=== PATIENT | male | born 2000 | race Caucasian/White ===

== ENCOUNTER 2021-09-29 07:16 | Inpatient (IN) ==
--- NOTE | 2021-09-29 07:48 | Emergency Department Note ---
History of Present Illness General Chief complaint: Flank Pain Stated complaint: BLADDER PRESSURE,FLANK PAIN Time Seen by Provider: 09/29/21 07:27 History of Present Illness Maximum Pain Intensity: 5 Patient is a generally healthy 21-year-old male who presents the emergency department for evaluation of bladder discomfort and abdominal pain over the last week or so. He does carry a history of IBS, ate some spicy noodles a couple weeks ago which gave him an IBS flare, but this resolved. He noted a "tingling sensation" in his bladder about a week ago. 2 days ago he had a lot of incr eased abdominal cramping, bladder pressure and soreness in the bladder after voiding. There was no dysuria however. He subjectively has felt feverish and had chills, but has not checked his temperature with a thermometer. But today he woke up with increased lower abdominal discomfort. It felt gassy. He did have a bowel movement, which helped, bowel movement was normal, no diarrhea. He has tried taking Tylenol and drinking cranberry juice for his symptoms. His appetite has been good but he has been following a bland diet. He has not been nauseous. No history of urinary issues or kidney stones. He denies alcohol, tobacco or nicotine use or street drugs. He is sexually active with his girlfriend in a monogamous relationship, has no discomfort with intercourse, no penile discharge, no concern for STIs. He denies any scrotal or testicular pain or swelling. He rated his discomfort a 5/10 in triage. Home Medications Medication Instructions Recorded Confirmed Type acetaminophen 325 mg tablet 325 mg PO QID PRN 09/29/21 09/29/21 History (Tylenol) Allergies Allergy/AdvReac Type Severity Reaction Status Date / Time azithromycin [From Zithromax] Allergy Intermediate hives in Unverified 09/29/21 08:45 mouth amoxicillin Allergy Unknown Unknown Unverified 09/29/21 08:45 Penicillins Allergy Unknown Unknown Unverified 09/29/21 08:45 Past Med/Surg History Medical History IBS (irritable bowel syndrome) Panic attack Surgical History H/O wisdom tooth extraction Social History Smoking Status: Never smoker Tobacco Type: E-cigarettes / Vaping Hx Alcohol Use: No Hx Substance Use: No Preferred Language: Salvadorean Communication Ability: Effective Operating Room Specialist Required: No Beliefs That Will Affect Care: None Current Living Situation: Significant Other Current Living Situation Comment: lives locally with girlfriend current occupation: [employer] student, taking virtual classes Other Information That Helps Us Care for You: No Feels Safe at Home: Yes Safety Concerns: Feels Safe At This Time Assistive Devices: Glasses Review of Systems A total of 10 systems reviewed and were otherwise negative Physical Exam Vital Signs Vital Signs - 24 hr 09/29/21 07:20 09/29/21 09:15 09/29/21 10:00 Temperature 36.9 C Temperature Source Oral Pulse Rate 126 H Pulse Rate [Radial] 98 H 98 H Pulse Rhythm [Radial] Regular Regular Respiratory Rate 20 18 18 Respiratory Effort / Characteristics Non-Labored Non-Labored Non-Labored Respiratory Depth Normal Normal Normal Respiratory Pattern Regular Regular Blood Pressure 137/91 Blood Pressure [Right Arm] 130/72 115/68 Blood Pressure Mean 106 Blood Pressure Mean [Right Arm] 91 83 Pulse Oximetry 100 98 98 Oxygen Delivery Method Room Air Room Air Room Air Sepsis Recent Fever Within 48 Hours No Sepsis New/Unexplained Change in Mental Status N/A Sepsis Action Taken by Nursing No Action Required CONSTITUTIONAL: Patient is a pleasant, well-appearing 21-year-old male who is aw gin and alert and in no acute distress. EYES: Pupils equal, round, reactive to light and accommodation. EOMs intact without nystagmus. Sclera are anicteric. ENT: Tympanic membranes intact, with normal landmarks. External canals are clear. Oral and nasopharynx are clear. Mucous membranes are moist, no lesions, tongue and gums appear normal. CARDIOVASCULAR: Regular rate and rhythm, with normal S1 and S2, no murmur or gallop or rub is heard. No carotid bruits auscultated. No JVD. Peripheral pulses easily palpable. RESPIRATORY: Breath sounds equal and clear to auscultation without wheezes, rales, or rhonchi heard. Full and equal chest expansion without accessory muscle use or retractions. ABDOMEN: Bowel sounds are present. Abdomen is soft, nondistended, tender to percussion in the suprapubic, right lower and left lower abdomen, tender to palpation in the right lower quadrant, and in the suprapubic region. Voluntary guarding noted. No CVA tenderness. INTEGUMENTARY: No lesions or rash, normal skin turgor. LYMPH: No lymphadenopathy. Course Course The patient was seen and assessed as above. Old records are reviewed. He presents the emergency department for evaluation of some vague urinary symptoms, but lower abdominal discomfort and cramping in the last 48 hours that has worsened. IV lock was initiated and laboratory studies were collected. CBC with differential, CMP and urinalysis were obtained. Urine dip performed by the ED nurse in the department was completely clear. Laboratory studies note a minimally elevated white count at 11,300, left shift and bandemia noted. No anemia. Electrolytes, renal functions, transaminases are normal. Urine microscopy is pending. CT scan of the abdomen and pelvis with IV contrast was obtained, noting perforated acute appendicitis with a 3.8 cm multiloculated periappendiceal abscess and extensive periappendiceal infiltration. Patient was ordered IV Cipro 400 mg and metronidazole 500 mg. He was made aware of the results of his CAT scan. A COVID swab was collected. He was reminded to be n.p.o. Consultation was placed with Dr. Santos with general surgery. COVID swab was negative. Dr. Santos evaluated the patient in the emergency department, and will admit to his service for IV antibiotics. Please refer to his H&P for further information. Administered Medications Enoxaparin Sodium (Enoxaparin Inj 40 Mg/0.4 Ml Syr) 40 mg SQ Q24H GALINDO Stop: 10/29/21 13:29 Last Admin: 09/29/21 13:25 Dose: Not Given Documented by: [id number] Metronidazole (Flagyl) 500 mg in 100 mls @ 100 mls/hr IV Q8H GALINDO Stop: 10/09/21 09:59 Last Infusion: 09/29/21 10:52 Dose: 0 mls/hr Documented by: [id number] Admin: 09/29/21 09:54 Dose: 100 mls/hr Documented by: [id number] Morphine Sulfate (Morphine Sulfate 2 Mg/Ml Carp) 2 mg IV Q3H PRN PRN Reason: Pain (1,2,3,4,5) & Pre PT Stop: 10/13/21 13:16 Last Admin: 09/29/21 13:29 Dose: 2 mg Documented by: [id number] Discontinued Medications Sodium Chloride (Nss 1000ml) 1,000 mls @ 999 mls/hr IV .Q1H1M GALINDO Stop: 09/29/21 08:49 Last Infusion: 09/29/21 08:50 Dose: 0 mls/hr Documented by: [id number] Admin: 09/29/21 08:06 Dose: 999 mls/hr Documented by: [id number] Ciprofloxacin (Cipro / D5w) 400 mg in 200 mls @ 100 mls/hr IV NOW STA; Protocol Stop: 09/29/21 11:32 Last Infusion: 09/29/21 11:56 Dose: 0 mls/hr Documented by: [id number] Admin: 09/29/21 09:47 Dose: 100 mls/hr Documented by: [id number] Ioversol (Optiray 320 100ml) 95 ml IV ONCE ONE Stop: 09/29/21 09:16 Last Admin: 09/29/21 09:16 Dose: 95 ml Documented by: [id number] Medical Decision Making Differential Diagnosis Differential diagnoses entertained included UTI, cystitis, kidney stone, pyelonephritis, prostatitis, appendicitis, bowel obstruction, perforation, abscess, IBS exacerbation, infectious versus inflammatory colitis/enteritis, foodborne illness, hernia, orchitis, epididymitis, among others. Medical Records Attestation: I reviewed the patient's medical records. Home Medications Current Medication List: was personally reviewed by me Laboratory Data Attestation: I reviewed the patient's lab results. Result diagrams: 09/29/21 08:07 09/29/21 08:07 Lab Results 09/29/21 09/29/21 09/29/21 Range/Units 07:30 08:07 08:07 WBC 11.36 H (4.8-10.8) K/uL RBC 5.04 (4.7-6.1) M/uL Hgb 15.1 (14.0-18.0) g/dL Hct 43.1 (42-52) % MCV 85.5 (80-100) fL MCH 30.0 (25-34) pg MCHC 35.0 (32-36) g/dL RDW Std Deviation 39.2 (36.4-46.3) fL RDW Coeff of Aviva 12.5 (11.5-14.5) % Plt Count 266 (130-400) K/uL MPV 10.4 (7.4-10.4) fL Immature Gran % (Auto) 0.3 % Neut % (Auto) 76.8 % Lymph % (Auto) 12.3 % Hanson % (Auto) 9.2 % Eos % (Auto) 1.1 % Baso % (Auto) 0.3 % Neut # (Auto) 8.73 H (1.4-6.5) K/uL Lymph # (Auto) 1.40 (1.2-3.4) K/uL Hanson # (Auto) 1.05 H (0.11-0.59) K/uL Eos # (Auto) 0.12 (0-0.5) K/uL Baso # (Auto) 0.03 (0-0.2) K/uL Immature Gran # (Auto) 0.03 H (0.00-0.02) K/uL Sodium 137 (136-145) mmol/L Potassium 3.7 (3.5-5.1) mmol/L Chloride 103 (98-107) mmol/L Carbon Dioxide 27 (21-32) mmol/L Anion Gap 7 (3-11) BUN 10 (6-23) mg/dl Creatinine 0.84 (0.6-1.4) mg/dl Est Cr Clr Drug Dosing 139.5 ml/min Est GFR ( Amer) 146.1 ml/min Est GFR (Non-Af Amer) 126.0 ml/min BUN/Creatinine Ratio 11.9 (10-20) Glucose 119 H (70-99(Fasting)) mg/dl Calcium 9.8 (8.5-10.1) mg/dl Total Bilirubin 1.0 (0.2-1.0) mg/dl AST 14 (13-39) U/L ALT 24 (7-52) U/L Alkaline Phosphatase 77 (34-104) U/L Total Protein 8.1 (6.0-8.3) gm/dl Albumin 4.6 (3.4-5.0) gm/dl Globulin 3.5 (2.5-4.0) gm/dl Albumin/Globulin Ratio 1.3 (0.9-2) Urine Color Yellow Urine Appearance Clear (Clear) Urine pH 7.0 (4.5-7.5) Ur Specific [place] 1.005 (1.000-1.030) Urine Protein Negative (Negative) Urine Glucose (UA) Negative (Negative) Urine Ketones Negative (Negative) Urine Blood Negative (Negative) Urine Nitrite Negative (Negative) Urine Bilirubin Negative (Negative) Urine Urobilinogen Negative (Negative) Ur Leukocyte Esterase Negative (Negative) SARS-CoV-2, RNA, NAAT (NEGATIVE) 09/29/21 Range/Units 09:40 WBC (4.8-10.8) K/uL RBC (4.7-6.1) M/uL Hgb (14.0-18.0) g/dL Hct (42-52) % MCV (80-100) fL MCH (25-34) pg MCHC (32-36) g/dL RDW Std Deviation (36.4-46.3) fL RDW Coeff of Aviva (11.5-14.5) % Plt Count (130-400) K/uL MPV (7.4-10.4) fL Immature Gran % (Auto) % Neut % (Auto) % Lymph % (Auto) % Hanson % (Auto) % Eos % (Auto) % Baso % (Auto) % Neut # (Auto) (1.4-6.5) K/uL Lymph # (Auto) (1.2-3.4) K/uL Hanson # (Auto) (0.11-0.59) K/uL Eos # (Auto) (0-0.5) K/uL Baso # (Auto) (0-0.2) K/uL Immature Gran # (Auto) (0.00-0.02) K/uL Sodium (136-145) mmol/L Potassium (3.5-5.1) mmol/L Chloride (98-107) mmol/L Carbon Dioxide (21-32) mmol/L Anion Gap (3-11) BUN (6-23) mg/dl Creatinine (0.6-1.4) mg/dl Est Cr Clr Drug Dosing ml/min Est GFR ( Amer) ml/min Est GFR (Non-Af Amer) ml/min BUN/Creatinine Ratio (10-20) Glucose (70-99(Fasting)) mg/dl Calcium (8.5-10.1) mg/dl Total Bilirubin (0.2-1.0) mg/dl AST (13-39) U/L ALT (7-52) U/L Alkaline Phosphatase (34-104) U/L Total Protein (6.0-8.3) gm/dl Albumin (3.4-5.0) gm/dl Globulin (2.5-4.0) gm/dl Albumin/Globulin Ratio (0.9-2) Urine Color Urine Appearance (Clear) Urine pH (4.5-7.5) Ur Specific [place] (1.000-1.030) Urine Protein (Negative) Urine Glucose (UA) (Negative) Urine Ketones (Negative) Urine Blood (Negative) Urine Nitrite (Negative) Urine Bilirubin (Negative) Urine Urobilinogen (Negative) Ur Leukocyte Esterase (Negative) SARS-CoV-2, RNA, NAAT NEGATIVE (NEGATIVE) Imaging Data Attestation: I personally reviewed and interpreted this imaging study as fo llows: Radiologist's Impression: Abdomen/Pelvis CT 09/29/21 07:48 CT OF THE ABDOMEN AND PELVIS WITH CONTRAST CLINICAL HISTORY: RLQ/SUPRAPUBIC PAIN, URINARY SYMPTOMS, BACK PAIN COMPARISON STUDY: None. TECHNIQUE: Following IV administration of 95 mL of Optiray, axial images of the abdomen and pelvis were obtained from the lung bases to the proximal femurs. Images were reviewed in the axial, sagittal, and coronal planes. IV contrast was administered without complication. Automated exposure control was utilized for the study. A dose lowering technique was utilized adhering to the principles of ALARA. CT DOSE: 318.75 mGy.cm FINDINGS: Lung bases are unremarkable. No pneumatosis, free air or portal venous gas is present. Liver, adrenal glands, kidneys and pancreas are normal. The spleen is mildly enlarged. No biliary or pancreatic ductal dilatation is present. There is no peripancreatic or pericholecystic infiltration. Prominent ileocolic lymph nodes are likely reactive. There is trace fluid within the right paracolic gutter. Base of the appendix is markedly dilated with wall thickening. The appendiceal base measures 1.8 cm in caliber. There is extensive periappe ndiceal infiltration as well as a multiloculated periappendiceal abscess that measures 3.8 cm. The wall appears disrupted. This represents perforated appendicitis. Small amount of fluid within the pelvis is noted. The appendix extends inferiorly from the cecum along the medial aspect of the right iliac vessels to the superior pelvis. IMPRESSION: 1. Findings consistent with perforated acute appendicitis with a 3.8 cm multiloculated periappendiceal abscess and extensive periappendiceal infiltration. Small amount of fluid within the pelvis and right paracolic gutter. 2. Mild splenomegaly. ACT 112: Negative or not required by law. Electronically signed by: Jonas Tucker M.D. 09/29/2021 9:29 AM MDM Narrative See ED Course. Impression & Plan Acute appendicitis with appendiceal abscess Discharge Plan Visit Data Chief Complaint: Flank Pain Stated Complaint: BLADDER PRESSURE,FLANK PAIN ED Provider: Melina Rivera ED Midlevel Provider: Trisha Kirkland Discharge Problem: Acute appendicitis with appendiceal abscess Patient Disposition: Admitted As Inpatient Discharge Instructions Interventions: ED Discharge Assessment Last Done: 09/29/21 12:49
[2021-09-29] MEDS ORDERED: SODIUM CHLORIDE 0.9% 1000ML 1,000 ML IV SCH (07:49)
[2021-09-29 08:07] LABS: Appearance Urine Clear (Clear); Bilirubin Urine Negative (Negative); Blood Urine Negative (Negative); Color Urine Yellow; Glucose Urine UA Negative (Negative); Ketones Urine Negative (Negative); Leukocyte Esterase Urine Negative (Negative); Nitrite Urine Negative (Negative); Protein Urine Negative (Negative); Specific Gravity Urine 1.005 (1.000-1.030); Urobilinogen Urine Negative (Negative)
[2021-09-29 08:31] LABS: Basophils # (auto) 0.03 K/uL (0-0.2); Basophils % (auto) 0.3 %; Eosinophils # (auto) 0.12 K/uL (0-0.5); Eosinophils % (auto) 1.1 %; Hematocrit (blood only) 43.1 % (42-52); Hemoglobin 15.1 g/dL (14.0-18.0); Immature Granulocytes # (auto) 0.03 K/uL (0.00-0.02); Immature Granulocytes % (auto) 0.3 %; Lymphocytes % (auto) 12.3 %; Mean Corpuscular Volume 85.5 fL (80-100); Mean Platelet Volume 10.4 fL (7.4-10.4); Monocytes # (auto) 1.05 K/uL (0.11-0.59); Monocytes % (auto) 9.2 %; Neutrophils # (auto) 8.73 K/uL (1.4-6.5); Neutrophils % (auto) 76.8 %; Platelet Count 266 K/uL (130-400); RDW Coefficient of Variation 12.5 % (11.5-14.5); RDW Standard Deviation 39.2 fL (36.4-46.3); Red Blood Count 5.04 M/uL (4.7-6.1); White Blood Count 11.36 K/uL (4.8-10.8)
[2021-09-29 08:49] LABS: Albumin Globulin Ratio 1.3 (0.9-2); Albumin Level 4.6 gm/dl (3.4-5.0); BUN Creatinine Ratio 11.9 (10-20); Calcium 9.8 mg/dl (8.5-10.1); Creatinine Clr Calc Pharmacy 139.5 ml/min; Est GFR (African American) 146.1 ml/min; Globulin 3.5 gm/dl (2.5-4.0); Potassium 3.7 mmol/L (3.5-5.1); Total Protein 8.1 gm/dl (6.0-8.3)
[2021-09-29] MEDS ORDERED: OPTIRAY 320 100ml IV ONE (09:15)
--- NOTE | 2021-09-29 09:30 | CT Scan Report ---
CT OF THE ABDOMEN AND PELVIS WITH CONTRAST CLINICAL HISTORY: RLQ/SUPRAPUBIC PAIN, URINARY SYMPTOMS, BACK PAIN COMPARISON STUDY: None. TECHNIQUE: Following IV administration of 95 mL of Optiray, axial images of the abdomen and pelvis we re obtained from the lung bases to the proximal femurs. Images were reviewed in the axial, sagittal, and coronal planes. IV contrast was administered without complication. Automated exposure control wa s utilized for the study. A dose lowering technique was utilized adhering to the principles of ALARA . CT DOSE: 318.75 mGy.cm FINDINGS: Lung bases are unremarkable. No pneumatosis, free air or portal venous gas is present. Live r, adrenal glands, kidneys and pancreas are normal. The spleen is mildly enlarged. No biliary or panc reatic ductal dilatation is present. There is no peripancreatic or pericholecystic infiltration. Prom inent ileocolic lymph nodes are likely reactive. There is trace fluid within the right paracolic gutt er. Base of the appendix is markedly dilated with wall thickening. The appendiceal base measures 1.8 cm in caliber. There is extensive periappendiceal infiltration as well as a multiloculated periappend iceal abscess that measures 3.8 cm. The wall appears disrupted. This represents perforated appendicit is. Small amount of fluid within the pelvis is noted. The appendix extends inferiorly from the cecum along the medial aspect of the right iliac vessels to the superior pelvis. IMPRESSION: 1. Findings consistent with perforated acute appendicitis with a 3.8 cm multiloculated periappendicea l abscess and extensive periappendiceal infiltration. Small amount of fluid within the pelvis and rig ht paracolic gutter. 2. Mild splenomegaly. ACT 112: Negative or not required by law. Electronically signed by: Jonas Tucker M.D. 09/29/2021 9:29 AM
[2021-09-29] MEDS ORDERED: CIPROFLOXACIN / D5W 400 MG/200 ML BAG IV STA (09:33)
[2021-09-29] MEDS: metroNIDAZOLE 500 MG/100 ML BAG IV SCH ×2 (09:54→17:44)
--- NOTE | 2021-09-29 10:58 | History & Physical Report ---
Date of Service September 29, 2021 Assessment & Plan (1) Acute appendicitis with appendiceal abscess: Plan: 21-year-old gentleman presents with acute appendicitis with what appears to be contained perforation, 3 cm abscess. He is not febrile at this time. His white count is normal. He has minimal tenderness. On his CT scan, there is a significant amount of severe inflammatory change in the cecum and terminal ileum with large phlegmon. I discussed treatment with IV antibiotics currently. I reviewed the CT scan with radiology, and due to the size and location, it is not a drainable collection. Certainly, if he deteriorates, he may require operative intervention, however for now we will treat him conservatively with IV Cipro and Flagyl. He does have a penicillin allergy. All his questions were answered, he is agreeable with the plan. We will admit him to the hospital place him on IV antibiotics, keep him on clear liquid diet. We will monitor him very closely. History of Present Illness Primary Care Provider: Jose A Cardenas DO 21-year-old gentleman with history of IBS presents with a 4-day history of mild lower abdominal pain, and a "queasy "feeling, as if he had a GI bug. He states that this morning he had severe right lower quadrant pain which subsequently went away. He currently has a moderate amount of right lower quadrant pain, aching character. He denies nausea or vomiting. He denies change in bowel habits. He did have fevers and chills associated with this on Thursday and Thursday but none currently. He denies chest pain or shortness of breath. He denies any other medical history. CT scan demonstrates appendicitis with significant inflammation of the cecum and terminal ileum as well as a small 3 cm abscess, contained. In discussing with radiology, it does not appear to be a drainable collection. Allergies Allergy/AdvReac Type Severity Reaction Status Date / Time azithromycin [From Zithromax] Allergy Intermediate hives in Unverified 09/29/21 08:45 mouth amoxicillin Allergy Unknown Unknown Unverified 09/29/21 08:45 Penicillins Allergy Unknown Unknown Unverified 09/29/21 08:45 Home Medications Medication Instructions Recorded Confirmed Type acetaminophen 325 mg tablet 325 mg PO QID PRN 09/29/21 09/29/21 History (Tylenol) Past Med/Surg History Medical History IBS (irritable bowel syndrome) Panic attack Surgical History H/O wisdom tooth extraction Social History Smoking Status: Never smoker Tobacco Type: E-cigarettes / Vaping Current Living Situation Comment: lives locally with girlfriend current occupation: [employer] student, taking [employer] classes Feels Safe at Home: Yes Review of Systems Review of Systems: All systems reviewed & are unremarkable except as noted in HPI & below Physical Exam Constitutional: WD/WN, vitals as above Neck: trachea midline, no thyromegaly Respiratory: normal respiratory effort; no respiratory distress and no labored breathing Cardiovascular: Rate/Rhythm: regular rate and regular rhythm Gastrointestinal (Abdomen): Inspection/Auscultation: abdomen normal to inspection; abdomen not distended Percussion/Palpation: + abdomen tender (Right lower quadrant) and abdomen soft; no guarding and abdomen not rigid Musculoskeletal: Extremities: no cyanosis and no clubbing Skin: no rashes, warm and dry Psychiatric: A+Ox3, euthymic affect Results & Data Results & Data ([facility]) Vital Signs (Past 12 Hours) Vital Signs Temp Pulse Pulse Resp BP BP Pulse Ox 09/29/21 10:00 98 H 18 115/68 98 09/29/21 09:15 98 H 18 130/72 98 09/29/21 07:20 36.9 C 126 H 20 137/91 100 Laboratory Results 09/29/21 09/29/21 09/29/21 Range/Units 09:40 08:11 08:07 WBC (4.8-10.8) K/uL RBC (4.7-6.1) M/uL Hgb (14.0-18.0) g/dL Hct (42-52) % MCV (80-100) fL MCH (25-34) pg MCHC (32-36) g/dL RDW Std Deviation (36.4-46.3) fL RDW Coeff of Aviva (11.5-14.5) % Plt Count (130-400) K/uL MPV (7.4-10.4) fL Immature Gran % (Auto) % Neut % (Auto) % Lymph % (Auto) % [place] % (Auto) % Eos % (Auto) % Baso % (Auto) % Neut # (Auto) (1.4-6.5) K/uL Lymph # (Auto) (1.2-3.4) K/uL [place] # (Auto) (0.11-0.59) K/uL Eos # (Auto) (0-0.5) K/uL Baso # (Auto) (0-0.2) K/uL Immature Gran # (Auto) (0.00-0.02) K/uL Sodium 137 (136-145) mmol/L Potassium 3.7 (3.5-5.1) mmol/L Chloride 103 (98-107) mmol/L Carbon Dioxide 27 (21-32) mmol/L Anion Gap 7 (3-11) BUN 10 (6-23) mg/dl Creatinine 0.84 (0.6-1.4) mg/dl Est Cr Clr Drug Dosing 139.5 ml/min Est GFR ( Amer) 146.1 ml/min Est GFR (Non-Af Amer) 126.0 ml/min BUN/Creatinine Ratio 11.9 (10-20) Glucose 119 H (70-99(Fasting)) mg/dl Calcium 9.8 (8.5-10.1) mg/dl Total Bilirubin 1.0 (0.2-1.0) mg/dl AST 14 (13-39) U/L ALT 24 (7-52) U/L Alkaline Phosphatase 77 (34-104) U/L Total Protein 8.1 (6.0-8.3) gm/dl Albumin 4.6 (3.4-5.0) gm/dl Globulin 3.5 (2.5-4.0) gm/dl Albumin/Globulin Ratio 1.3 (0.9-2) Urine Color Urine Appearance (Clear) Urine pH (4.5-7.5) POC Urine pH Pending Ur Specific Whitman (1.000-1.030) Urine Protein (Negative) POC Urine Protein Pending Urine Glucose (UA) (Negative) POC Ur Glucose (UA) Pending Urine Ketones (Negative) POC Urine Ketones Pending Urine Blood (Negative) POC Urine Blood Pending Urine Nitrite (Negative) POC Urine Nitrite Pending Urine Bilirubin (Negative) POC Urine Bilirubin Pending Urine Urobilinogen (Negative) POC Urine Urobilinogen Pending Ur Leukocyte Esterase (Negative) POC U Leukocyte Esteras Pending SARS-CoV-2, RNA, NAAT NEGATIVE (NEGATIVE) 09/29/21 09/29/21 Range/Units 08:07 07:30 WBC 11.36 H (4.8-10.8) K/uL RBC 5.04 (4.7-6.1) M/uL Hgb 15.1 (14.0-18.0) g/dL Hct 43.1 (42-52) % MCV 85.5 (80-100) fL MCH 30.0 (25-34) pg MCHC 35.0 (32-36) g/dL RDW Std Deviation 39.2 (36.4-46.3) fL RDW Coeff of Aviva 12.5 (11.5-14.5) % Plt Count 266 (130-400) K/uL MPV 10.4 (7.4-10.4) fL Immature Gran % (Auto) 0.3 % Neut % (Auto) 76.8 % Lymph % (Auto) 12.3 % [place] % (Auto) 9.2 % Eos % (Auto) 1.1 % Baso % (Auto) 0.3 % Neut # (Auto) 8.73 H (1.4-6.5) K/uL Lymph # (Auto) 1.40 (1.2-3.4) K/uL [place] # (Auto) 1.05 H (0.11-0.59) K/uL Eos # (Auto) 0.12 (0-0.5) K/uL Baso # (Auto) 0.03 (0-0.2) K/uL Immature Gran # (Auto) 0.03 H (0.00-0.02) K/uL Sodium (136-145) mmol/L Potassium (3.5-5.1) mmol/L Chloride (98-107) mmol/L Carbon Dioxide (21-32) mmol/L Anion Gap (3-11) BUN (6-23) mg/dl Creatinine (0.6-1.4) mg/dl Est Cr Clr Drug Dosing ml/min Est GFR ( Amer) ml/min Est GFR (Non-Af Amer) ml/min BUN/Creatinine Ratio (10-20) Glucose (70-99(Fasting)) mg/dl Calcium (8.5-10.1) mg/dl Total Bilirubin (0.2-1.0) mg/dl AST (13-39) U/L ALT (7-52) U/L Alkaline Phosphatase (34-104) U/L Total Protein (6.0-8.3) gm/dl Albumin (3.4-5.0) gm/dl Globulin (2.5-4.0) gm/dl Albumin/Globulin Ratio (0.9-2) Urine Color Yellow Urine Appearance Clear (Clear) Urine pH 7.0 (4.5-7.5) POC Urine pH Ur Specific [place] 1.005 (1.000-1.030) Urine Protein Negative (Negative) POC Urine Protein Urine Glucose (UA) Negative (Negative) POC Ur Glucose (UA) Urine Ketones Negative (Negative) POC Urine Ketones Urine Blood Negative (Negative) POC Urine Blood Urine Nitrite Negative (Negative) POC Urine Nitrite Urine Bilirubin Negative (Negative) POC Urine Bilirubin Urine Urobilinogen Negative (Negative) POC Urine Urobilinogen Ur Leukocyte Esterase Negative (Negative) POC U Leukocyte Esteras SARS-CoV-2, RNA, NAAT (NEGATIVE) Diagnostic Findings CT OF THE ABDOMEN AND PELVIS WITH CONTRAST CLINICAL HISTORY: RLQ/SUPRAPUBIC PAIN, URINARY SYMPTOMS, BACK PAIN COMPARISON STUDY: None. TECHNIQUE: Following IV administration of 95 mL of Optiray, axial images of the abdomen and pelvis were obtained from the lung bases to the proximal femurs. Images were reviewed in the axial, sagittal, and coronal planes. IV contrast was administered without complication. Automated exposure control was utilized for the study. A dose lowering technique was utilized adhering to the principles of ALARA. CT DOSE: 318.75 mGy.cm FINDINGS: Lung bases are unremarkable. No pneumatosis, free air or portal venous gas is present. Liver, adrenal glands, kidneys and pancreas are normal. The spleen is mildly enlarged. No biliary or pancreatic ductal dilatation is present. There is no peripancreatic or pericholecystic infiltration. Prominent ileocolic lymph nodes are likely reactive. There is trace fluid within the right paracolic gutter. Base of the appendix is markedly dilated with wall thickening. The appendiceal base measures 1.8 cm in caliber. There is extensive periappendiceal infiltration as well as a multiloculated periappendiceal abscess that measures 3.8 cm. The wall appears disrupted. This represents perforated appendicitis. Small amount of fluid within the pelvis is noted. The appendix extends inferiorly from the cecum along the medial aspect of the right iliac vessels to the superior pelvis. IMPRESSION: 1. Findings consistent with perforated acute appendicitis with a 3.8 cm multiloculated periappendiceal abscess and extensive periappendiceal infiltration. Small amount of fluid within the pelvis and right paracolic gutter. 2. Mild splenomegaly. Code Status & VTE Plan VTE Prophylaxis Plan VTE Prophylaxis will be ordered: Yes
[2021-09-29] MEDS ORDERED: KETOROLAC 30 MG/ML VIAL IV PRN (13:17)
[2021-09-29] MEDS ORDERED: PROMETHAZINE HCL 12.5 MG in SODIUM CHLORIDE 0.9% 50 ML IV PRN (13:17)
[2021-09-29] MEDS ORDERED: PROMETHAZINE HCL 25 MG in SODIUM CHLORIDE 0.9% 50 ML IV PRN (13:17)
[2021-09-29] MEDS: ENOXAPARIN INJ 40 MG/0.4 ML SYR SQ SCH (13:25)
[2021-09-29] MEDS: MoRPHine SULFATE 2 MG/ML CARP IV PRN ×3 (13:29→22:54)
[2021-09-29] MEDS: CIPROFLOXACIN / D5W 400 MG/200 ML BAG IV SCH (20:46)
[2021-09-30] MEDS: metroNIDAZOLE 500 MG/100 ML BAG IV SCH ×3 (01:40→17:42)
[2021-09-30 08:06] LABS: Basophils # (auto) 0.03 K/uL (0-0.2); Basophils % (auto) 0.2 %; Eosinophils # (auto) 0.07 K/uL (0-0.5); Eosinophils % (auto) 0.5 %; Hematocrit (blood only) 38.7 % (42-52); Hemoglobin 13.5 g/dL (14.0-18.0); Immature Granulocytes # (auto) 0.03 K/uL (0.00-0.02); Immature Granulocytes % (auto) 0.2 %; Lymphocytes # (auto) 1.88 K/uL (1.2-3.4); Lymphocytes % (auto) 14.7 %; Mean Corpuscular Hemoglobin 30.1 pg (25-34); Mean Corpuscular Hgb Conc 34.9 g/dL (32-36); Mean Corpuscular Volume 86.4 fL (80-100); Mean Platelet Volume 10.3 fL (7.4-10.4); Monocytes # (auto) 1.22 K/uL (0.11-0.59); Monocytes % (auto) 9.5 %; Neutrophils # (auto) 9.59 K/uL (1.4-6.5); Neutrophils % (auto) 74.9 %; Platelet Count 264 K/uL (130-400); RDW Coefficient of Variation 12.4 % (11.5-14.5); RDW Standard Deviation 39.2 fL (36.4-46.3); Red Blood Count 4.48 M/uL (4.7-6.1); White Blood Count 12.82 K/uL (4.8-10.8)
[2021-09-30] MEDS: CIPROFLOXACIN / D5W 400 MG/200 ML BAG IV SCH ×2 (08:07→20:22)
[2021-09-30 08:28] LABS: BUN Creatinine Ratio 14.1 (10-20); Calcium 9.3 mg/dl (8.5-10.1); Creatinine Clr Calc Pharmacy 134.1 ml/min; Est GFR (African American) 145.4 ml/min; Est GFR (Non-African American) 125.4 ml/min; Potassium 3.5 mmol/L (3.5-5.1)
--- NOTE | 2021-09-30 11:11 | Surgery Progress Note ---
Date of Service September 30, 2021 Assessment & Plan (1) Acute appendicitis with appendiceal abscess: Plan: 21-year-old gentleman with acute appendicitis with phlegmon and small abscess. Being treated with IV antibiotic therapy. He is significantly improved today. We will continue the antibiotics. We will continue to monitor. He will stay on a clear liquid diet today. Admission and Anticipated Discharge Date Admission Date: September 29, 2021 Subjective He states he is feeling well today. He denies any nausea or vomiting. He states that his pain is significantly improved from yesterday. Physical Exam Constitutional: WD/WN, vitals as above Neck: trachea midline, no thyromegaly Gastrointestinal (Abdomen): Inspection/Auscultation: abdomen normal to inspection; abdomen not distended Percussion/Palpation: + abdomen tender (Right lower quadrant) and abdomen soft; no guarding and abdomen not rigid Musculoskeletal: Extremities: no cyanosis and no clubbing Skin: no rashes, warm and dry Psychiatric: A+Ox3, euthymic affect Results & Data ([facility]) Vital Signs (Past 12 Hours) Vital Signs Temp Pulse Resp BP Pulse Ox 09/30/21 08:46 36.7 C 96 H 16 113/65 96
[2021-09-30] MEDS: MoRPHine SULFATE 2 MG/ML CARP IV PRN ×2 (12:47→20:19)
[2021-09-30] MEDS: ENOXAPARIN INJ 40 MG/0.4 ML SYR SQ SCH (12:47)
[2021-09-30] MEDS ORDERED: ACETAMINOPHEN 325 MG TAB PO PRN (16:58)
[2021-10-01] MEDS: metroNIDAZOLE 500 MG/100 ML BAG IV SCH ×3 (01:54→17:41)
[2021-10-01 07:54] LABS: Basophils # (auto) 0.02 K/uL (0-0.2); Basophils % (auto) 0.2 %; Eosinophils # (auto) 0.18 K/uL (0-0.5); Eosinophils % (auto) 1.8 %; Hematocrit (blood only) 39.2 % (42-52); Hemoglobin 13.5 g/dL (14.0-18.0); Immature Granulocytes # (auto) 0.01 K/uL (0.00-0.02); Immature Granulocytes % (auto) 0.1 %; Lymphocytes # (auto) 1.24 K/uL (1.2-3.4); Lymphocytes % (auto) 12.5 %; Mean Corpuscular Hgb Conc 34.4 g/dL (32-36); Mean Corpuscular Volume 87.1 fL (80-100); Mean Platelet Volume 10.4 fL (7.4-10.4); Monocytes # (auto) 1.17 K/uL (0.11-0.59); Monocytes % (auto) 11.8 %; Neutrophils % (auto) 73.6 %; Platelet Count 261 K/uL (130-400); RDW Coefficient of Variation 12.3 % (11.5-14.5); RDW Standard Deviation 39.1 fL (36.4-46.3); White Blood Count 9.92 K/uL (4.8-10.8)
[2021-10-01] MEDS: CIPROFLOXACIN / D5W 400 MG/200 ML BAG IV SCH ×2 (08:00→20:34)
[2021-10-01 08:04] LABS: BUN Creatinine Ratio 12.1 (10-20); Calcium 9.4 mg/dl (8.5-10.1); Creatinine Clr Calc Pharmacy 125.3 ml/min; Est GFR (African American) 140.1 ml/min; Est GFR (Non-African American) 120.9 ml/min; Potassium 4.1 mmol/L (3.5-5.1)
--- NOTE | 2021-10-01 09:38 | Surgery Progress Note ---
Date of Service October 01, 2021 Assessment & Plan (1) Acute appendicitis with appendiceal abscess: Plan: 21-year-old gentleman with acute appendicitis with phlegmon and small abscess. Being treated with IV antibiotic therapy. Tmax 38.1 yesterday afternoon afebrile since Leukocytosis resolved Eating clear liquids Passing flatus Plan: Will plan to continue IV antibiotics with Cipro and Flagyl Continue clear liquid diet, possibly full liquids for dinner Encourage ambulation SCDs for DVT prophylaxis Dr. Desir has seen and examined pt agrees with above. Admission and Anticipated Discharge Date Admission Date: September 29, 2021 Subjective Feeling better today, states the right lower quadrant abdominal pain is more of a soreness now at night pain. No nausea no vomiting Tolerating clear liquids Passing gas no bowel movement yet Urinating without difficulty Physical Exam Constitutional: WD/WN, vitals as above no acute distress and not ill appearing Neck: normal visual inspection and trachea midline Respiratory: normal respiratory effort; no respiratory distress Gastrointestinal (Abdomen): Inspection/Auscultation: abdomen normal to insp ection and normal bowel sounds; abdomen not distended Percussion/Palpation: + abdomen tender (right Lower quadrant), + guarding (voluntary in RLQ on deep palpation) and abdomen soft; abdomen not rigid and abdomen not firm Skin: no rashes, warm and dry Psychiatric: A+Ox3, euthymic affect Results & Data ([facility]) Vital Signs (Past 12 Hours) Vital Signs Temp Pulse Resp BP Pulse Ox 10/01/21 07:20 36.4 C L 105 H 20 118/73 96 09/30/21 22:14 36.3 C L 86 16 108/65 98 Laboratory Results 10/01/21 10/01/21 09/29/21 Range/Units 06:59 06:59 08:11 WBC 9.92 (4.8-10.8) K/uL RBC 4.50 L (4.7-6.1) M/uL Hgb 13.5 L (14.0-18.0) g/dL Hct 39.2 L (42-52) % MCV 87.1 (80-100) fL MCH 30.0 (25-34) pg MCHC 34.4 (32-36) g/dL RDW Std Deviation 39.1 (36.4-46.3) fL RDW Coeff of Aviva 12.3 (11.5-14.5) % Plt Count 261 (130-400) K/uL MPV 10.4 (7.4-10.4) fL Immature Gran % (Auto) 0.1 % Neut % (Auto) 73.6 % Lymph % (Auto) 12.5 % Bartholomew % (Auto) 11.8 % Eos % (Auto) 1.8 % Baso % (Auto) 0.2 % Neut # (Auto) 7.30 H (1.4-6.5) K/uL Lymph # (Auto) 1.24 (1.2-3.4) K/uL Bartholomew # (Auto) 1.17 H (0.11-0.59) K/uL Eos # (Auto) 0.18 (0-0.5) K/uL Baso # (Auto) 0.02 (0-0.2) K/uL Immature Gran # (Auto) 0.01 (0.00-0.02) K/uL Sodium 138 (136-145) mmol/L Potassium 4.1 (3.5-5.1) mmol/L Chloride 101 (98-107) mmol/L Carbon Dioxide 29 (21-32) mmol/L Anion Gap 8 (3-11) BUN 11 (6-23) mg/dl Creatinine 0.91 (0.6-1.4) mg/dl Est Cr Clr Drug Dosing 125.3 ml/min Est GFR ( Amer) 140.1 ml/min Est GFR (Non-Af Amer) 120.9 ml/min BUN/Creatinine Ratio 12.1 (10-20) Glucose 90 (70-99(Fasting)) mg/dl Calcium 9.4 (8.5-10.1) mg/dl POC Urine pH Cancelled POC Urine Protein Cancelled POC Ur Glucose (UA) Cancelled POC Urine Ketones Cancelled POC Urine Blood Cancelled POC Urine Nitrite Cancelled POC Urine Bilirubin Cancelled POC Urine Urobilinogen Cancelled POC U Leukocyte Esteras Cancelled
[2021-10-01] MEDS: ENOXAPARIN INJ 40 MG/0.4 ML SYR SQ SCH (12:29)
[2021-10-01] MEDS: MoRPHine SULFATE 2 MG/ML CARP IV PRN (15:21)
[2021-10-02] MEDS: MoRPHine SULFATE 2 MG/ML CARP IV PRN (00:33)
[2021-10-02] MEDS: metroNIDAZOLE 500 MG/100 ML BAG IV SCH ×3 (01:40→17:30)
[2021-10-02 08:56] LABS: Basophils # (auto) 0.02 K/uL (0-0.2); Basophils % (auto) 0.3 %; Eosinophils # (auto) 0.19 K/uL (0-0.5); Eosinophils % (auto) 2.5 %; Hematocrit (blood only) 39.4 % (42-52); Hemoglobin 13.6 g/dL (14.0-18.0); Immature Granulocytes # (auto) 0.01 K/uL (0.00-0.02); Immature Granulocytes % (auto) 0.1 %; Lymphocytes # (auto) 1.26 K/uL (1.2-3.4); Lymphocytes % (auto) 16.5 %; Mean Corpuscular Hemoglobin 29.5 pg (25-34); Mean Corpuscular Hgb Conc 34.5 g/dL (32-36); Mean Corpuscular Volume 85.5 fL (80-100); Mean Platelet Volume 10.1 fL (7.4-10.4); Monocytes # (auto) 0.86 K/uL (0.11-0.59); Monocytes % (auto) 11.3 %; Neutrophils % (auto) 69.3 %; Platelet Count 243 K/uL (130-400); RDW Coefficient of Variation 12.2 % (11.5-14.5); RDW Standard Deviation 38.1 fL (36.4-46.3); Red Blood Count 4.61 M/uL (4.7-6.1); White Blood Count 7.64 K/uL (4.8-10.8)
[2021-10-02] MEDS: CIPROFLOXACIN / D5W 400 MG/200 ML BAG IV SCH ×2 (09:48→22:27)
[2021-10-02] MEDS: ENOXAPARIN INJ 40 MG/0.4 ML SYR SQ SCH (13:45)
[2021-10-02] MEDS ORDERED: oxyCODONE/ACETAMINOPHEN 5mg/325mg TAB PO PRN (17:31)
[2021-10-02] MEDS ORDERED: ONDANSETRON INJ 2 MG/ML 2 ML VIAL IV PRN (17:32)
--- NOTE | 2021-10-02 18:21 | Surgery Progress Note ---
Date of Service October 02, 2021 Assessment & Plan (1) Acute appendicitis with appendiceal abscess: Plan: 21-year-old gentleman with acute appendicitis with phlegmon and small abscess. Being treated with IV antibiotic therapy. Afebrile for 48 hours Leukocytosis resolved Eating clear liquids + bowel function - abdominal pain continues to improve, not requiring pain medication Plan: Advance diet to low fiber if tolerates well can be discharged home tonight as he has had 3.5 days of IV antibiotics PO Cipro and Flagyl for 10 more days F/u surgery office in 1 week for close follow up discharge instructions reviewed Admission and Anticipated Discharge Date Admission Date: September 29, 2021 Subjective feeling better today had a bowel movements today ambulating hallway not requiring any pain medication no fevers or chills hungry Physical Exam Constitutional: WD/WN, vitals as above no acute distress and not ill appearing Respiratory: normal respiratory effort; no respiratory distress Gastrointestinal (Abdomen): Inspection/Auscultation: abdomen normal to inspection and normal bowel sounds; abdomen not distended Percussion/Palpation: + abdomen tender (RLQ on deep palpation) and abdomen soft; no guarding and abdomen not rigid Skin: no rashes, warm and dry Psychiatric: A+Ox3, euthymic affect Results & Data ([facility]) Vital Signs (Past 12 Hours) Vital Signs Temp Pulse Resp BP Pulse Ox 10/02/21 14:35 36.8 C 76 16 101/59 L 97 10/02/21 11:26 36.8 C 77 20 109/67 96 10/02/21 07:00 36.7 C 80 20 109/69 97 Laboratory Results 10/02/21 Range/Units 08:07 WBC 7.64 (4.8-10.8) K/uL RBC 4.61 L (4.7-6.1) M/uL Hgb 13.6 L (14.0-18.0) g/dL Hct 39.4 L (42-52) % MCV 85.5 (80-100) fL MCH 29.5 (25-34) pg MCHC 34.5 (32-36) g/dL RDW Std Deviation 38.1 (36.4-46.3) fL RDW Coeff of Aviva 12.2 (11.5-14.5) % Plt Count 243 (130-400) K/uL MPV 10.1 (7.4-10.4) fL Immature Gran % (Auto) 0.1 % Neut % (Auto) 69.3 % Lymph % (Auto) 16.5 % [place] % (Auto) 11.3 % Eos % (Auto) 2.5 % Baso % (Auto) 0.3 % Neut # (Auto) 5.30 (1.4-6.5) K/uL Lymph # (Auto) 1.26 (1.2-3.4) K/uL [place] # (Auto) 0.86 H (0.11-0.59) K/uL Eos # (Auto) 0.19 (0-0.5) K/uL Baso # (Auto) 0.02 (0-0.2) K/uL Immature Gran # (Auto) 0.01 (0.00-0.02) K/uL
--- NOTE | 2021-10-03 14:29 | Discharge Summary ---
Date of Service October 03, 2021 Admission HPI Per Admitting Provider 21-year-old gentleman with history of IBS presents with a 4-day history of mild lower abdominal pain, and a "queasy "feeling, as if he had a GI bug. He states that this morning he had severe right lower quadrant pain which subsequently went away. He currently has a moderate amount of right lower quadrant pain, aching character. He denies nausea or vomiting. He denies change in bowel habits. He did have fevers and chills associated with this on Thursday and Thursday but none currently. He denies chest pain or shortness of breath. He denies any other medical history. CT scan demonstrates appendicitis with si gnificant inflammation of the cecum and terminal ileum as well as a small 3 cm abscess, contained. In discussing with radiology, it does not appear to be a drainable collection. Principal Diagnosis Acute perforated appendicitis with abscess Discharge Data Allergies Allergy/AdvReac Type Severity Reaction Status Date / Time azithromycin [From Zithromax] Allergy Intermediate hives in Unverified 09/29/21 08:45 mouth amoxicillin Allergy Unknown Unknown Unverified 09/29/21 08:45 Penicillins Allergy Unknown Unknown Unverified 09/29/21 08:45 Consultations 09/29/ 10:32 ED Decision to Admit Stat Ordered Studies 09/29/21 07:48 CT abd pelvis IV con only Stat Hospital Course (1) Acute appendicitis with appendiceal abscess: Patient was admitted to the hospital from the emergency department for conservative management of the acute perforated appendicitis with abscess with IV fluids, IV antibiotics, pain management as needed, IV Zofran as needed for nausea and activity as tolerated. His diet was advanced to clear liquids and then this was slowly advanced to a low fiber diet in the evening of hospital day #3. His labs were continued each day and his leukocytosis improved and resolved on hospital day #2. Patient's abdominal pain in the right lower quadrant continued to improve. He was able to have a bowel movement on hospital day #3 and was passing gas. He was evaluated in the late evening on hospital hospital day #3 in which he has now had 3 and half days of the IV Cipro and Flagyl and his pain was controlled without need of any narcotic pain medication. His diet was advanced to low fiber diet and if he tolerated well he could be discharged home that evening. Patient elected to go home in the evening of hospital day #3 as he tolerated the advancement of diet. He was sent with 10 days of p.o. Kt and Carola and advised to follow-up in the office in 1 week and to call office with any concerns or report back to the emergency room if he was having any fevers and increasing abdominal pain. Total Time Total Time Spent Total Time Spent (In Minutes): 30 Total Time Includes: Examination of the Patient, Discharge Planning and Medication Reconciliation Discharge Plan Discharge Items Patient Disposition: Home - Self-Care Reason For Visit: ACUTE APPENDICITIS WITH ABSCESS Discharge Diagnosis: Acute appendicitis with abscess treated with IV antibiotics Activity: Per Instructions section Non-emergency contact: Primary Care Provider and Surgeon Call non-emergency contact if: you have any medication questions, your pain is not controlled, your pain is worsening, you have a fever and your temperature is above 101 Follow-up/Referrals: Long Santos MD [Physician] - Jose A Cardenas DO [Primary Care Provider] - Diet: Low Fiber Addtl Attending Provider Instructions: Post-Surgical ~Discharge Instructions Activity Recommendations: - lifting limitation: (10 pounds for 2 weeks), - exercise/sex/sports limit: (nonstrenuous for 2 weeks), - driving or machine use limit: (none for 1 week or until pain free and no longer taking narcotic pain medication), - Shower/bathe limit: (may shower) Diet: - Low fiber diet for 2 weeks SPECIAL CARE INSTRUCTIONS: - May shower. - Call the surgeon's office with any questions or concerns - (Increasing abdominal pain, fever, chills, nausea, vomiting) MEDICATIONS: - Resume previous medications unless instructed otherwise by your surgeon. _ 650 mg Tylenol every 6 hours as needed - Ibuprofen 600 mg every 6 hours as needed (take with food) - Percocet 1 every 4 hours, as needed for moderate to severe pain - Take entire course of antibiotics as prescribed (10 days) FOLLOW UP VISIT: - If not already scheduled, please call the office to schedule a one week follow-up appointment. Office number Pending Studies at Discharge: No Stand-Alone Forms: [email or web address], Smoking Cessation Medications and DC Order Prescriptions: New oxycodone-acetaminophen [Percocet] 5-325 mg tablet 1 tab PO Q4H PRN (Reason: pain) Qty: 10 RF: 0 ciprofloxacin HCl 500 mg tablet 500 mg PO BID Qty: 20 RF: 0 metronidazole 500 mg tablet 500 mg PO TID Qty: 30 RF: 0 Continued acetaminophen [Tylenol] 325 mg Tablet 325 mg PO QID PRN (Reason: Pain) RF: 0 Discharge Orders: Discharge Order (Routine); Ordered 10/02/21 Ordered By: Dayna Rucker/Other Patient Handouts: IBS Diet Lifestyle Tips, What Is Appendicitis?, Surgery for Appendicitis Admission Data Admit Date/Time: 09/29/21 10:54 Attending Provider: Long Santos Admit Provider: Long Santos Primary Care Provider: Jose A Cardenas Other Providers: Long Santos Other Interventions: Discharge Summary Assessment (RN) Last Done: 10/02/21 20:09
== END 2021-10-02 20:20 | disposition home or self-care (01) | DRG 373 ==
LOC: ED 07:16 → 3N 10:54

== ENCOUNTER 2021-10-06 19:34 | Inpatient (IN) ==
[2021-10-06 20:16] LABS: Basophils # (auto) 0.02 K/uL (0-0.2); Basophils % (auto) 0.1 %; Eosinophils # (auto) 0.17 K/uL (0-0.5); Eosinophils % (auto) 1.2 %; Hematocrit (blood only) 39.9 % (42-52); Hemoglobin 14.2 g/dL (14.0-18.0); Immature Granulocytes # (auto) 0.03 K/uL (0.00-0.02); Immature Granulocytes % (auto) 0.2 %; Lymphocytes # (auto) 1.34 K/uL (1.2-3.4); Lymphocytes % (auto) 9.1 %; Mean Corpuscular Hgb Conc 35.6 g/dL (32-36); Mean Corpuscular Volume 84.2 fL (80-100); Mean Platelet Volume 9.9 fL (7.4-10.4); Monocytes # (auto) 1.53 K/uL (0.11-0.59); Monocytes % (auto) 10.4 %; Neutrophils # (auto) 11.63 K/uL (1.4-6.5); Platelet Count 333 K/uL (130-400); RDW Coefficient of Variation 12.1 % (11.5-14.5); Red Blood Count 4.74 M/uL (4.7-6.1); White Blood Count 14.72 K/uL (4.8-10.8)
[2021-10-06 20:30] LABS: Alanine Aminotransferase 10 U/L (7-52); Albumin Globulin Ratio 1.1 (0.9-2); Albumin Level 3.9 gm/dl (3.4-5.0); Alkaline Phosphatase 64 U/L (34-104); Anion Gap 11 (3-11); Aspartate Aminotransferase 10 U/L (13-39); BUN Creatinine Ratio 10.8 (10-20); Bilirubin,Total 0.6 mg/dl (0.2-1.0); Blood Urea Nitrogen 8 mg/dl (6-23); Calcium 8.9 mg/dl (8.5-10.1); Carbon Dioxide 24 mmol/L (21-32); Chloride 99 mmol/L (98-107); Creatinine Clr Calc Pharmacy 151.1 ml/min; Est GFR (African American) > 150.0 ml/min; Est GFR (Non-African American) 132.8 ml/min; Globulin 3.5 gm/dl (2.5-4.0); Glucose 109 mg/dl (70-99(Fasting)); Potassium 3.4 mmol/L (3.5-5.1); Sodium 134 mmol/L (136-145); Total Protein 7.4 gm/dl (6.0-8.3)
--- NOTE | 2021-10-06 22:13 | Emergency Department Note ---
History of Present Illness General Chief complaint: Fever Stated complaint: fever, abd pain Time Seen by Provider: 10/06/21 21:57 History of Present Illness Maximum Pain Intensity: 5 This is a 21-year-old male presenting to the emergency department for evaluation of fever that started earlier today. The patient has a recent history of appendicitis with isolated abscess that was identified on 09/29/2021 on CAT scan. The patient was admitted to this facility for several days where he did receive IV antibiotics. He did well with the IV antibiotics and did not undergo appendectomy. The patient was discharged home with Cipro and Flagyl and has been taking his medication as prescribed. The patient states that earlier today he noticed a low-grade fever, took Tylenol, and went to sleep. This did improve the fever. He states that it returned this evening and was 101.7 F. He is not having significant pain and has not taken his oxycodone for several days. He feels like he has been eating and drinking as normal. He did have some diarrheal illness today. He rates his current discomfort a 5/10. Home Medications Medication Instructions Recorded Confirmed Type acetaminophen 325 mg tablet 325 mg PO QID PRN 09/29/21 10/06/21 History (Tylenol) ciprofloxacin HCl 500 mg tablet 500 mg PO BID #20 tab 10/02/21 10/06/21 Rx metronidazole 500 mg tablet 500 mg PO TID #30 tab 10/02/21 10/06/21 Rx oxycodone-acetaminophen 5 mg-325 1 tab PO Q4H PRN #10 tab 10/02/21 10/06/21 Rx mg tablet (Percocet) Allergies Allergy/AdvReac Type Severity Reaction Status Date / Time azithromycin [From Zithromax] Allergy Intermediate hives in Unverified 10/06/21 21:22 mouth amoxicillin Allergy Unknown Unknown Unverified 10/06/21 21:22 Penicillins Allergy Unknown Unknown Unverified 10/06/21 21:22 Past Med/Surg History Medical History IBS (irritable bowel syndrome) Panic attack Surgical History H/O wisdom tooth extraction Social History Smoking Status: Never smoker Tobacco Type: E-cigarettes / Vaping Hx Alcohol Use: No Hx Substance Use: No Preferred Language: Spanish Communication Ability: Effective Legal Support Analyst Required: No Beliefs That Will Affect Care: None Current Living Situation: Significant Other Current Living Situation Comment: lives locally with girlfriend current occupation: [employer] student, taking virtual classes Other Information That Helps Us Care for You: No Feels Safe at Home: Yes Safety Concerns: Feels Safe At This Time Assistive Devices: Glasses Review of Systems A total of 10 systems reviewed and were otherwise negative Physical Exam Vital Signs Vital Signs - 24 hr 10/06/21 19:36 10/06/21 21:08 Temperature 38.8 C H 37.6 C H Temperature Source Temporal Artery Scan Oral Pulse Rate 117 H 99 H Pulse Rate [Finger] 103 H Respiratory Rate 20 16 Respiratory Effort / Characteristics Non-Labored Spontaneous Non-Labored Respiratory Depth Normal Normal Respiratory Pattern Regular Regular Blood Pressure 124/59 L Blood Pressure [Right Arm] 130/72 Blood Pressure Mean 80 Blood Pressure Mean [Right Arm] 91 Blood Pressure Position Sitting Blood Pressure Position [Right Arm] Sitting Pulse Oximetry 96 97 Oxygen Delivery Method Room Air Room Air Sepsis Recent Fever Within 48 Hours Yes Sepsis New/Unexplained Change in Mental Status No Sepsis Action Taken by Nursing No Action Required VITALS: Vitals are noted on the nurse's note and reviewed by myself. Vital signs with tachycardia and fever. GENERAL: Well-developed, well-nourished, white male, who is in no acute distress and resting comfortably. Patient is cooperative with the examination. HEAD: Normocephalic atraumatic. EARS: External ear normal. External auditory canals clear, tympanic membranes pearly mattson without erythema or effusion bilaterally. EYES: Pupils equal round and reactive to light and accommodation. Conjunctivae without injection, sclerae without icterus. Extraocular movements intact. NOSE: Patent, turbinates without inflammation or discharge. MOUTH: Mucous membranes moist. Tonsils are not enlarged. Pharynx without erythema, blood, or exudate. Uvula midline. Airway patent. NECK: Supple without nuchal rigidity. No lymphadenopathy. No thyromegaly. Cervical spine is nontender. HEART: Tachycardic rate with regular rhythm LUNGS: Clear to auscultation bilaterally without wheezes, rales or rhonchi. No retractions or accessory muscle use. ABDOMEN: Positive normal bowel sounds x 4. Soft, nontender, without masses or organomegaly. No guarding or rebound tenderness. MUSCULOSKELETAL: No muscle atrophy, erythema, or edema noted. Full range of motion in all extremities Course Administered Medications Acetaminophen (Ofirmev) 1,000 mg in 100 mls @ 400 mls/hr IV Q8H PRN PRN Reason: Pain Stop: 10/09/21 23:52 Last Infusion: 10/07/21 00:26 Dose: 0 mls/hr Documented by: [id number] Admin: 10/07/21 00:04 Dose: 400 mls/hr Documented by: [id number] Lactated Ringer's (Lr) 1,000 mls @ 125 mls/hr IV .Q8H [facility] Stop: 11/05/21 23:52 Last Admin: 10/07/21 01:35 Dose: 125 mls/hr Documented by: [id number] Aztreonam 2,000 mg/ Dextrose 110 mls @ 100 mls/hr IV Q8H [facility]; Protocol Stop: 10/16/21 23:53 Last Infusion: 10/07/21 02:46 Dose: 0 mls/hr Documented by: [id number] Admin: 10/07/21 01:40 Dose: 100 mls/hr Documented by: [id number] Morphine Sulfate (Morphine Sulfate 2 Mg/Ml Carp) 2 mg IV Q3H PRN PRN Reason: Pain Stop: 10/20/21 23:52 Last Admin: 10/07/21 03:13 Dose: 2 mg Documented by: [id number] Admin: 10/07/21 00:03 Dose: 2 mg Documented by: [id number] Discontinued Medications Sodium Chloride (Nss 1000ml) 1,000 mls @ 999 mls/hr IV .Q1H1M [facility] Stop: 10/06/21 23:15 Last Infusion: 10/06/21 23:54 Dose: 0 mls/hr Documented by: [id number] Admin: 10/06/21 22:32 Dose: 999 mls/hr Documented by: [id number] Metronidazole (Flagyl) 500 mg in 100 mls @ 100 mls/hr IV 0030 ONE Stop: 10/07/21 01:29 Last Infusion: 10/07/21 04:10 Dose: 0 mls/hr Documented by: [id number] Admin: 10/07/21 03:08 Dose: 100 mls/hr Documented by: [id number] Ioversol (Optiray 320 100ml) 95 ml IV ONCE ONE Stop: 10/06/21 22:50 Last Admin: 10/06/21 22:50 Dose: 95 ml Documented by: [id number] Medical Decision Making Differential Diagnosis Differential diagnosis: Etiologies such as biliary colic, cholecystitis, hepatitis, pancreatitis, cardiac disease, pancreatitis, gastritis, peptic ulcer disease, appendicitis, cystitis, diverticulitis, mesenteric ischemia, inflammatory bowel disease, ileus, bowel obstruction, testicular/adnexal torsion, aortic pathology, shingles, as well as others were considered Laboratory Data Result diagrams: 10/07/21 06:08 10/07/21 06:08 Lab Results 10/06/21 10/06/21 10/06/21 Range/Units 20:00 20:00 22:29 WBC 14.72 H (4.8-10.8) K/uL RBC 4.74 (4.7-6.1) M/uL Hgb 14.2 (14.0-18.0) g/dL Hct 39.9 L (42-52) % MCV 84.2 (80-100) fL MCH 30.0 (25-34) pg MCHC 35.6 (32-36) g/dL RDW Std Deviation 37.0 (36.4-46.3) fL RDW Coeff of Aviva 12.1 (11.5-14.5) % Plt Count 333 (130-400) K/uL MPV 9.9 (7.4-10.4) fL Immature Gran % (Auto) 0.2 % Neut % (Auto) 79.0 % Lymph % (Auto) 9.1 % [place] % (Auto) 10.4 % Eos % (Auto) 1.2 % Baso % (Auto) 0.1 % Neut # (Auto) 11.63 H (1.4-6.5) K/uL Lymph # (Auto) 1.34 (1.2-3.4) K/uL Weakley # (Auto) 1.53 H (0.11-0.59) K/uL Eos # (Auto) 0.17 (0-0.5) K/uL Baso # (Auto) 0.02 (0-0.2) K/uL Immature Gran # (Auto) 0.03 H (0.00-0.02) K/uL Sodium 134 L (136-145) mmol/L Potassium 3.4 L (3.5-5.1) mmol/L Chloride 99 (98-107) mmol/L Carbon Dioxide 24 (21-32) mmol/L Anion Gap 11 (3-11) BUN 8 (6-23) mg/dl Creatinine 0.74 (0.6-1.4) mg/dl Est Cr Clr Drug Dosing 151.1 ml/min Est GFR ( Amer) > 150.0 ml/min Est GFR (Non-Af Amer) 132.8 ml/min BUN/Creatinine Ratio 10.8 (10-20) Glucose 109 H (70-99(Fasting)) mg/dl Lactate 0.6 (0.4-2.0) mmol/L Calcium 8.9 (8.5-10.1) mg/dl Total Bilirubin 0.6 (0.2-1.0) mg/dl AST 10 L (13-39) U/L ALT 10 (7-52) U/L Alkaline Phosphatase 64 (34-104) U/L Total Protein 7.4 (6.0-8.3) gm/dl Albumin 3.9 (3.4-5.0) gm/dl Globulin 3.5 (2.5-4.0) gm/dl Albumin/Globulin Ratio 1.1 (0.9-2) Urine Color Urine Appearance (Clear) Urine pH (4.5-7.5) Ur Specific [place] (1.000-1.030) Urine Protein (Negative) Urine Glucose (UA) (Negative) Urine Ketones (Negative) Urine Blood (Negative) Urine Nitrite (Negative) Urine Bilirubin (Negative) Urine Urobilinogen (Negative) Ur Leukocyte Esterase (Negative) SARS-CoV-2 (PCR) (Negative) Influenza Type A (PCR) (Neg) Influenza Type B (PCR) (Neg) RSV (RT-PCR) (Neg) 10/06/21 10/06/21 Range/Units 22:30 23:45 WBC (4.8-10.8) K/uL RBC (4.7-6.1) M/uL Hgb (14.0-18.0) g/dL Hct (42-52) % MCV (80-100) fL MCH (25-34) pg MCHC (32-36) g/dL RDW Std Deviation (36.4-46.3) fL RDW Coeff of Aviva (11.5-14.5) % Plt Count (130-400) K/uL MPV (7.4-10.4) fL Immature Gran % (Auto) % Neut % (Auto) % Lymph % (Auto) % [place] % (Auto) % Eos % (Auto) % Baso % (Auto) % Neut # (Auto) (1.4-6.5) K/uL Lymph # (Auto) (1.2-3.4) K/uL [place] # (Auto) (0.11-0.59) K/uL Eos # (Auto) (0-0.5) K/uL Baso # (Auto) (0-0.2) K/uL Immature Gran # (Auto) (0.00-0.02) K/uL Sodium (136-145) mmol/L Potassium (3.5-5.1) mmol/L Chloride (98-107) mmol/L Carbon Dioxide (21-32) mmol/L Anion Gap (3-11) BUN (6-23) mg/dl Creatinine (0.6-1.4) mg/dl Est Cr Clr Drug Dosing ml/min Est GFR ( Amer) ml/min Est GFR (Non-Af Amer) ml/min BUN/Creatinine Ratio (10-20) Glucose (70-99(Fasting)) mg/dl Lactate (0.4-2.0) mmol/L Calcium (8.5-10.1) mg/dl Total Bilirubin (0.2-1.0) mg/dl AST (13-39) U/L ALT (7-52) U/L Alkaline Phosphatase (34-104) U/L Total Protein (6.0-8.3) gm/dl Albumin (3.4-5.0) gm/dl Globulin (2.5-4.0) gm/dl Albumin/Globulin Ratio (0.9-2) Urine Color Yellow Urine Appearance Clear (Clear) Urine pH 7.0 (4.5-7.5) Ur Specific [place] 1.042 H (1.000-1.030) Urine Protein Negative (Negative) Urine Glucose (UA) Negative (Negative) Urine Ketones 1+ H (Negative) Urine Blood Negative (Negative) Urine Nitrite Negative (Negative) Urine Bilirubin Negative (Negative) Urine Urobilinogen Negative (Negative) Ur Leukocyte Esterase Negative (Negative) SARS-CoV-2 (PCR) NEGATIVE (Negative) Influenza Type A (PCR) Negative (Neg) Influenza Type B (PCR) Negative (Neg) RSV (RT-PCR) Negative (Neg) Imaging Data Radiologist's Impression: Preliminary Findings Only See Final Report For Complete Findings CT ABDOMEN & PELVIS With Contrast: Comparison: 09/29/2021. Lung bases are clear. Normal abdominal viscera. Normal aorta and retroperitoneum. Normal stomach. Nonspecific small bowel with no significant dilatation to suggest obstruction. Redemonstrated is enlarged appendix up to 3.2 cm with a fluid collection at the tip measuring 3.0 cm concerning for an abscess. This was seen on previous examination and is slightly increased in size in the interval. There is a adjacent thickening of the wall throughout the distal sigmoid. Radiologist:MARLEE Damicohone:[phone] [facility] Narrative Physical exam and history were performed. Nursing notes, EMR, and Medication List were personally reviewed. Patient appears to have fever symptoms bring him to the ER. On exam he does not have significant tenderness but is with temperature of 39.2 F. He does have a recent appendicitis with appendiceal abscess that was treated nonoperatively with IV antibiotics here in the hospital. Since discharge she does seem to be worsening. IV access was established and labs were obtained. Lactic and blood cultures were gathered. He was hydrated with normal saline and given IV morphine, IV Zofran, and IV Tylenol. I did reach out to the surgical service very early on in the patient's presentation to the ER, and recommendation is for repeat CT scan which was performed with IV contrast. The patient's blood work is as above and was reviewed. He does not have a significantly elevated white blood cell count, gross anemia, bandemia, or significant electrolyte imbalance. Transaminases are not diagnostic. COVID is negative. Lactic acid is negative. CT scan of the abdomen and pelvis does show redemonstration of the appendicitis with appendiceal abscess. This does seem slightly larger than from 1 week ago. The case was discussed with the surgical team who did evaluate the patient at bedside and will bring him into the hospital for further care. They will discuss with pharmacy appropriate antibiotics due to the patient's allergies. Please see the surgical team's dictation for further patient course, plan, and disposition. The chart was completed utilizing [employer]aky Speech Voice Recognition Software. Grammatical errors, random word insertions, pronoun errors, and incomplete sentences are an occasional consequence of this system due to software limitations, ambient noise, and hardware issues. Any formal questions or concerns about the content, text, or information contained within the body of this dictation should be directly addressed to the provider for clarification. . Impression & Plan Acute appendicitis with appendiceal abscess Discharge Plan Visit Data Chief Complaint: Fever Stated Complaint: fever, abd pain ED Provider: Марина Echeverria ED Midlevel Provider: Andrés Ruiz Discharge Problem: Acute appendicitis with appendiceal abscess Patient Disposition: Admitted As Inpatient Discharge Instructions Interventions: ED Discharge Assessment Last Done: 10/07/21 00:22
[2021-10-06] MEDS ORDERED: SODIUM CHLORIDE 0.9% 1000ML 1,000 ML IV SCH (22:15)
[2021-10-06] MEDS ORDERED: OPTIRAY 320 100ml IV ONE (22:49)
[2021-10-06 23:30] LABS: Influenza A virus by PCR Negative (Neg); Influenza B virus by PCR Negative (Neg); RSV by PCR Negative (Neg); SARS CoV2 RNA(COVID-19) InHosp NEGATIVE (Negative)
[2021-10-06] MEDS ORDERED: ONDANSETRON INJ 2 MG/ML 2 ML VIAL IV PRN (23:53)
[2021-10-06] MEDS ORDERED: ACETAMINOPHEN 1,000 MG/100 ML VIAL IV PRN (23:53)
[2021-10-06 23:55] LABS: Appearance Urine Clear (Clear); Bilirubin Urine Negative (Negative); Blood Urine Negative (Negative); Color Urine Yellow; Glucose Urine UA Negative (Negative); Ketones Urine 1+ (Negative); Leukocyte Esterase Urine Negative (Negative); Nitrite Urine Negative (Negative); Protein Urine Negative (Negative); Specific Gravity Urine 1.042 (1.000-1.030); Urobilinogen Urine Negative (Negative)
[2021-10-07] MEDS: MoRPHine SULFATE 2 MG/ML CARP IV PRN ×5 (00:03→21:16)
--- NOTE | 2021-10-07 00:03 | History & Physical Report ---
Date of Service October 06, 2021 Assessment & Plan (1) Acute appendicitis with appendiceal abscess: Plan: Due to the CT scan findings, labs, and clinical presentation the patient be admitted to the hospital and we will proceed as follows: The patient has failed outpatient Cipro and Flagyl we will admit him for IV antibiotics. I have discussed with the pharmacist and due to the patient's penicillin allergy we have elected to use aztreonam and Flagyl. We will follow serial labs We will hydrate him with IV fluids We will provide antiemetics We will provide analgesics I will tentatively make the patient n.p.o. for the present time and he will be reevaluated in the morning and a determination be made if patient will require any procedural intervention. We will use SCDs for DVT prevention, no chemical means until to certain the patient would not require any acute procedure intervention He will be a level 1 full code History of Present Illness Chief Complaint: I have appendicitis and not have a fever Primary Care Provider: Jose A Cardenas, This is a 21-year-old male who was most recently seen in at [facility] on 09/29/2021 at which time he was admitted with acute appendicitis. At that time patient had a CT scan of the abdomen and pelvis which what appeared to have a contained 3 cm abscess. Patient was initially seen by Dr. Jack Santos of [facility] general surgery where patient was noted to have a normal white count and minimal tenderness. Was felt at that time that the patient's noted abscess was not drainable by percutaneous methods. It was elected for patient to undergo treatment with antibiotics with an interval appendectomy. Patient was discharged home on oral Cipro and Flagyl and he reports that he has been taking these medications as prescribed. Patient notes that he was doing well but over the past 24 hours he has noted fevers. He denies any significant or worsening abdominal pain but does report diarrhea. He does report that his fevers were as high as 101.7. He notes that his appetite has not really been decreased. Since arrival to the emergency department the patient has had labs and imaging which independent reviewed. A chest x-ray showed no evidence of pneumonia. Patient did undergo a CT scan of the abdomen and pelvis. This study showed the patient had a dilated appendix of 3.2 cm with a fluid collection at the tip of the appendix measuring 3.0 cm which was concerning for an abscess. This was noted to be slightly increased in size when compared to his previous CT. CBC revealed white blood cell count was now 14.7. His hemoglobin was normal. Platelet count was also noted to be normal. A chemistry profile showed sodium was 134 and his potassium was 3.4. BUN and creatinine were 8 and 0.7. Lactic acid level was not elevated. Urinalysis was not indicative of infection. Patient was tested for COVID 19, influenza A, influenza B, and RSV all of which were negative. At the time of my interview he was resting comfortably in bed in no distress. Allergies Allergy/AdvReac Type Severity Reaction Status Date / Time azithromycin [From Zithromax] Allergy Intermediate hives in Unverified 10/06/21 21: mouth amoxicillin Allergy Unknown Unknown Unverified 10/06/21 21:22 Penicillins Allergy Unknown Unknown Unverified 10/06/21 21: Home Medications Medication Instructions Recorded Confirmed Type acetaminophen 325 mg tablet 325 mg PO QID PRN 09/29/21 10/06/21 History (Tylenol) ciprofloxacin HCl 500 mg tablet 500 mg PO BID #20 tab 10/02/21 10/06/21 Rx metronidazole 500 mg tablet 500 mg PO TID #30 tab 10/02/21 10/06/21 Rx oxycodone-acetaminophen 5 mg-325 1 tab PO Q4H PRN #10 tab 10/02/21 10/06/21 Rx mg tablet (Percocet) Past Med/Surg History Medical History IBS (irritable bowel syndrome) Panic attack Surgical History H/O wisdom tooth extraction Social History Smoking Status: Never smoker Tobacco Type: E-cigarettes / Vaping Hx Alcohol Use: No Hx Substance Use: No Preferred Language: Hungarian Communication Ability: Effective Web Development Consultant Required: No Beliefs That Will Affect Care: None Current Living Situation: Significant Other Current Living Situation Comment: lives locally with girlfriend current occupation: [employer] student, taking virtual classes Other Information That Helps Us Care for You: No Feels Safe at Home: Yes Safety Concerns: Feels Safe At This Time Assistive Devices: Glasses Review of Systems Constitutional: + fever; no chills Eyes: + corrective lenses Ear, Nose, Mouth, Throat: no ear pain Respiratory: no cough and no dyspnea Cardiovascular: no chest pain Gastrointestinal: + abdominal pain and + diarrhea/loose stools; no nausea and no vomiting Genitourinary: no dysuria Musculoskeletal: no back pain Integumentary: no rash Neurologic: no localized weakness Physical Exam Constitutional: WD/WN, vitals as above Eyes: no conjunctival abnormality Wears glasses ENMT: Ears: no hearing impairment and no external ear abnormality Mouth: no oropharynx abnormality Neck: trachea midline Respiratory: normal respiratory effort, lungs clear to auscultation Cardiovascular: Rate/Rhythm: regular rate and regular rhythm Gastrointestinal (Abdomen): Abdomen is soft and nondistended. There is no rebound tenderness or guarding. The patient did have some minor pain with palpation greatest in the right lower quadrant over McBurney's point. Musculoskeletal: No calf tenderness Skin: no rashes Neurologic: moves all extremities Psychiatric: A+Ox3, euthymic affect Results & Data Results & Data ([facility]) Vital Signs (Past 12 Hours) Vital Signs Temp Pulse Pulse Resp BP BP Pulse Ox 10/06/21 21:08 37.6 C H 99 H 103 H 16 130/72 97 10/06/21 19:36 38.8 C H 117 H 20 124/59 L 96 Code Status & VTE Plan VTE Prophylaxis Plan VTE Prophylaxis will be ordered: Yes Supervising Physician Co-Signing Physician Notes I personally saw and evaluated the patient with Eliud Ramos PA-C and agree with the assessment and plan. 21-year-old male with recent admission for perforated appendicitis treated with IV antibiotics, now here with fever and slightly larger abscess CT images and results viewed by me, he has a slightly enlarged more mature abscess in the right pelvis without any signs of free air We will plan on admitting the patient overnight keep him n.p.o. giving him IV antibiotics Will discuss the CT results with radiology to see if percutaneous drainage of the possibility Also will discuss the patient with the [facility] surgical service as they have been following him with his admission last week and he was set to follow-up with Dr. Santos later this week PG Care Time/CCT Total # of Minutes Spent Total Time Spent with Patient: Total time spent is greater than 50% in coordination of care (as documented) at patient's floor/unit and/or counseling patient: Coding Level of Care Code 90898 Initial Inpt Care Lvl 3 Diagnoses Acute appendicitis with appendiceal abscess K35.33
[2021-10-07] MEDS ORDERED: metroNIDAZOLE 500 MG/100 ML BAG IV ONE (00:30)
[2021-10-07] MEDS: LACTATED RINGER'S 1,000 ML IV SCH ×2 (01:35→13:44)
[2021-10-07] MEDS: AZTREONAM 2,000 MG in DEXTROSE 5% 100 ML IV SCH ×3 (01:40→18:17)
[2021-10-07 06:27] LABS: Hematocrit (blood only) 38.2 % (42-52); Hemoglobin 12.9 g/dL (14.0-18.0); Mean Corpuscular Hemoglobin 28.9 pg (25-34); Mean Corpuscular Hgb Conc 33.8 g/dL (32-36); Mean Corpuscular Volume 85.7 fL (80-100); Mean Platelet Volume 9.8 fL (7.4-10.4); Platelet Count 268 K/uL (130-400); RDW Coefficient of Variation 12.1 % (11.5-14.5); RDW Standard Deviation 37.8 fL (36.4-46.3); Red Blood Count 4.46 M/uL (4.7-6.1); White Blood Count 10.02 K/uL (4.8-10.8)
[2021-10-07 06:46] LABS: Anion Gap 5 (3-11); BUN Creatinine Ratio 8.2 (10-20); Blood Urea Nitrogen 6 mg/dl (6-23); Calcium 8.9 mg/dl (8.5-10.1); Carbon Dioxide 29 mmol/L (21-32); Chloride 104 mmol/L (98-107); Creatinine Clr Calc Pharmacy 145.7 ml/min; Est GFR (African American) > 150.0 ml/min; Est GFR (Non-African American) 133.5 ml/min; Glucose 94 mg/dl (70-99(Fasting)); Potassium 4.2 mmol/L (3.5-5.1); Sodium 138 mmol/L (136-145)
[2021-10-07 07:02] LABS: Basophils # (auto) 0.02 K/uL (0-0.2); Basophils % (auto) 0.2 %; Eosinophils # (auto) 0.25 K/uL (0-0.5); Eosinophils % (auto) 2.5 %; Immature Granulocytes # (auto) 0.02 K/uL (0.00-0.02); Immature Granulocytes % (auto) 0.2 %; Lymphocytes # (auto) 2.14 K/uL (1.2-3.4); Lymphocytes % (auto) 21.4 %; Monocytes # (auto) 1.23 K/uL (0.11-0.59); Monocytes % (auto) 12.3 %; Neutrophils # (auto) 6.36 K/uL (1.4-6.5); Neutrophils % (auto) 63.4 %
--- NOTE | 2021-10-07 07:30 | CT Scan Report ---
ABDOMEN AND PELVIS CT WITH IV CONTRAST CT DOSE: 283.51 mGy.cm HISTORY: Fever. Hx appendicitis with abscess a week ago. TECHNIQUE: Multiaxial CT images of the abdomen and pelvis were performed following the use of intrave nous contrast. A dose lowering technique was utilized adhering to the principles of ALARA. COMPARISON STUDY: Abdomen and pelvis CT 09/29/21. FINDINGS: The lung bases are clear. No pneumoperitoneum. No pneumatosis. No fractures within the visu alized osseous structures. The liver, gallbladder, adrenal glands, kidneys, and pancreas unremarkable . Mild splenomegaly which is likely reactive. No retroperitoneal lymphadenopathy. Normal caliber abdo chante aorta. The bladder is unremarkable. Mild thickening of the mid to distal sigmoid colon which conrad s slightly progressed. This may be reactive to the adjacent inflammatory process. No dilated loops of small bowel to suggest an obstruction. Redemonstration of the perforated acute appendicitis with ext ensive inflammatory change within the right lower quadrant and a multiloculated periappendiceal absce ss. The abscess measures approximately 5.4 x 3.8 cm which has slightly increased in size. The thicken ed appendix measuring approximately 1.8 cm. IMPRESSION: 1. Redemonstration of the perforated acute appendicitis with an associated periappendiceal abscess. T he abscess has slightly increased in size in the interval. 2. Mild thickening within the mid to distal sigmoid colon which has progressed. This is likely reacti ve to the adjacent periappendiceal abscess. 3. Mild splenomegaly, unchanged. ACT 112: Negative or not required by law. Electronically signed by: Umer Jones M.D. 10/07/2021 7:27 AM
--- NOTE | 2021-10-07 08:50 | XRay Report ---
XR chest 1V portable HISTORY: 21 years-old Male fever acute fever COMPARISON: CT abdomen and pelvis of same day TECHNIQUE: Portable AP view of the chest FINDINGS: The cardiomediastinal and hilar silhouettes are within normal limits. There is no pneumothorax, pleur al effusion, airspace consolidation or overt pulmonary edema. Bones of the chest appear grossly intac t. IMPRESSION: No acute process. ACT 112: Negative or not required by law. The above report was generated using voice recognition software. It may contain grammatical, syntax o r spelling errors. Electronically signed by: Marty Dacosta M.D. 10/07/2021 8:49 AM
--- NOTE | 2021-10-07 10:09 | Surgery Progress Note ---
Date of Service October 07, 2021 Assessment & Plan (1) Acute appendicitis with appendiceal abscess: Plan: Patient here with known perforated appendicitis w/ abscess Returns due to fevers on po abx at home. CT scan yesterday revealed slight increase in periappendiceal abscess Today WBC 10 (14) and he is afebrile Minimal pain Continue NPO and course of IV abx for now Will discuss with radiology to see if any window they can try to drain the collection Will discuss with Dr. Santos and [facility] surgery team for consideration of taking patient over as he was previously managed by them for his first hospitalization Admission and Anticipated Discharge Date Admission Date: October 06, 2021 Supervising Physician Co-Signing Physician Notes I personally saw and evaluated the patient with Italia Bustos PA-C and agree with the assessment and plan. 21-year-old male with recent admission for perforated appendicitis treated with IV antibiotics, now here with fever and slightly larger abscess Keep n.p.o. with IV antibiotics and IV fluids Will discuss the CT results with radiology to see if percutaneous drainage of the possibility Also will discuss the patient with the [facility] surgical service as they have been following him with his admission last week and he was set to follow-up with Dr. Santos later this week Subjective Patient is not having much pain. States the reason he came in was because he was having fevers. Physical Exam Physical Exam: awake/alert, NAD Gastrointestinal (Abdomen): Percussion/Palpation: + abdomen tender (mild discomfort to palpation in the RLQ) and abdomen soft Results & Data ([facility]) Vital Signs (Past 12 Hours) Vital Signs Temp Pulse Resp BP Pulse Ox 10/07/21 07:53 37.0 C 95 H 16 130/55 L 98 10/07/21 01:20 37.0 C 96 H 16 120/68 98 10/07/21 00:00 97 H 18 135/53 L 97 PG Care Time/CCT Total # of Minutes Spent Total Time Spent with Patient: Total time spent is greater than 50% in coordination of care (as documented) at patient's floor/unit and/or counseling patient: Coding Level of Care Code 68192 Subseq Hosp Care Lvl 1 Diagnoses Acute appendicitis with appendiceal abscess K35.33
[2021-10-07] MEDS: metroNIDAZOLE 500 MG/100 ML BAG IV SCH ×2 (11:55→19:27)
--- NOTE | 2021-10-07 14:21 | Surgery Progress Note ---
Date of Service October 07, 2021 Assessment & Plan (1) Acute appendicitis with appendiceal abscess: Plan: 21 year-old male who was recently admitted for perforated appendicitis treated conservatively with IV Cipro and Flagyl who was discharged on 10/02/2021 who presented to ED last evening with complaint of fever. Repeat CT scan showed perforated appendicitis with abscess slightly larger than previously measuring 5 cm. This is not amenable to percutaneous drainage per radiology given location even with increased size. IV antibiotics changed to Aztreonam and Flagyl. Leukocytosis resolved. No abdominal pain. Plan: Will continue IV antibiotics and monitor closely. Dr. Desir discussed the possibility of injury to bowel if we were to go in surgically at this time. Will repeat am labs including cbc and bmp and keep npo for now. Will re-evaluate tomorrow and determine if needs surgical intervention or just prolonged IV antibiotics. Encouraged ambulating hallway. Dr. Desir has seen and examined pt, agrees with above. Admission and Anticipated Discharge Date Admission Date: October 06, 2021 Subjective feeling better fever has resolved not having any abdominal pain, less pain then when he left the hospital on Thursday no n,v Physical Exam Constitutional: WD/WN, vitals as above no acute distress and not ill appearing Neck: normal visual inspection and trachea midline Respiratory: normal respiratory effort; no respiratory distress Gastrointestinal (Abdomen): Inspection/Auscultation: abdomen normal to inspection; abdomen not distended Percussion/Palpation: abdomen soft; abdomen nontender, no guarding and abdomen not rigid Skin: no rashes, warm and dry Psychiatric: A+Ox3, euthymic affect Results & Data ([facility]) Vital Signs (Past 12 Hours) Vital Signs Temp Pulse Resp BP Pulse Ox 10/07/21 14:10 36.6 C 78 16 116/69 98 10/07/21 07:53 37.0 C 95 H 16 130/55 L 98 Laboratory Results 10/07/21 10/07/21 10/06/21 Range/Units 06:08 06:08 23:45 WBC 10.02 (4.8-10.8) K/uL RBC 4.46 L (4.7-6.1) M/uL Hgb 12.9 L (14.0-18.0) g/dL Hct 38.2 L (42-52) % MCV 85.7 (80-100) fL MCH 28.9 (25-34) pg MCHC 33.8 (32-36) g/dL RDW Std Deviation 37.8 (36.4-46.3) fL RDW Coeff of Aviva 12.1 (11.5-14.5) % Plt Count 268 (130-400) K/uL MPV 9.8 (7.4-10.4) fL Immature Gran % (Auto) 0.2 % Neut % (Auto) 63.4 % Lymph % (Auto) 21.4 % [place] % (Auto) 12.3 % Eos % (Auto) 2.5 % Baso % (Auto) 0.2 % Neut # (Auto) 6.36 (1.4-6.5) K/uL Lymph # (Auto) 2.14 (1.2-3.4) K/uL [place] # (Auto) 1.23 H (0.11-0.59) K/uL Eos # (Auto) 0.25 (0-0.5) K/uL Baso # (Auto) 0.02 (0-0.2) K/uL Immature Gran # (Auto) 0.02 (0.00-0.02) K/uL Sodium 138 (136-145) mmol/L Potassium 4.2 D (3.5-5.1) mmol/L Chloride 104 (98-107) mmol/L Carbon Dioxide 29 (21-32) mmol/L Anion Gap 5 (3-11) BUN 6 (6-23) mg/dl Creatinine 0.73 (0.6-1.4) mg/dl Est Cr Clr Drug Dosing 145.7 ml/min Est GFR ( Amer) > 150.0 ml/min Est GFR (Non-Af Amer) 133.5 ml/min BUN/Creatinine Ratio 8.2 L (10-20) Glucose 94 (70-99(Fasting)) mg/dl Lactate (0.4-2.0) mmol/L Calcium 8.9 (8.5-10.1) mg/dl Total Bilirubin (0.2-1.0) mg/dl AST (13-39) U/L ALT (7-52) U/L Alkaline Phosphatase (34-104) U/L Total Protein (6.0-8.3) gm/dl Albumin (3.4-5.0) gm/dl Globulin (2.5-4.0) gm/dl Albumin/Globulin Ratio (0.9-2) Urine Color Yellow Urine Appearance Clear (Clear) Urine pH 7.0 (4.5-7.5) Ur Specific [place] 1.042 H (1.000-1.030) Urine Protein Negative (Negative) Urine Glucose (UA) Negative (Negative) Urine Ketones 1+ H (Negative) Urine Blood Negative (Negative) Urine Nitrite Negative (Negative) Urine Bilirubin Negative (Negative) Urine Urobilinogen Negative (Negative) Ur Leukocyte Esterase Negative (Negative) SARS-CoV-2 (PCR) (Negative) Influenza Type A (PCR) (Neg) Influenza Type B (PCR) (Neg) RSV (RT-PCR) (Neg) 10/06/21 10/06/21 10/06/21 Range/Units 22:30 22:29 20:00 WBC (4.8-10.8) K/uL RBC (4.7-6.1) M/uL Hgb (14.0-18.0) g/dL Hct (42-52) % MCV (80-100) fL MCH (25-34) pg MCHC (32-36) g/dL RDW Std Deviation (36.4-46.3) fL RDW Coeff of Aviva (11.5-14.5) % Plt Count (130-400) K/uL MPV (7.4-10.4) fL Immature Gran % (Auto) % Neut % (Auto) % Lymph % (Auto) % [place] % (Auto) % Eos % (Auto) % Baso % (Auto) % Neut # (Auto) (1.4-6.5) K/uL Lymph # (Auto) (1.2-3.4) K/uL [place] # (Auto) (0.11-0.59) K/uL Eos # (Auto) (0-0.5) K/uL Baso # (Auto) (0-0.2) K/uL Immature Gran # (Auto) (0.00-0.02) K/uL Sodium 134 L (136-145) mmol/L Potassium 3.4 L (3.5-5.1) mmol/L Chloride 99 (98-107) mmol/L Carbon Dioxide 24 (21-32) mmol/L Anion Gap 11 (3-11) BUN 8 (6-23) mg/dl Creatinine 0.74 (0.6-1.4) mg/dl Est Cr Clr Drug Dosing 151.1 ml/min Est GFR ( Amer) > 150.0 ml/min Est GFR (Non-Af Amer) 132.8 ml/min BUN/Creatinine Ratio 10.8 (10-20) Glucose 109 H (70-99(Fasting)) mg/dl Lactate 0.6 (0.4-2.0) mmol/L Calcium 8.9 (8.5-10.1) mg/dl Total Bilirubin 0.6 (0.2-1.0) mg/dl AST 10 L (13-39) U/L ALT 10 (7-52) U/L Alkaline Phosphatase 64 (34-104) U/L Total Protein 7.4 (6.0-8.3) gm/dl Albumin 3.9 (3.4-5.0) gm/dl Globulin 3.5 (2.5-4.0) gm/dl Albumin/Globulin Ratio 1.1 (0.9-2) Urine Color Urine Appearance (Clear) Urine pH (4.5-7.5) Ur Specific [place] (1.000-1.030) Urine Protein (Negative) Urine Glucose (UA) (Negative) Urine Ketones (Negative) Urine Blood (Negative) Urine Nitrite (Negative) Urine Bilirubin (Negative) Urine Urobilinogen (Negative) Ur Leukocyte Esterase (Negative) SARS-CoV-2 (PCR) NEGATIVE (Negative) Influenza Type A (PCR) Negative (Neg) Influenza Type B (PCR) Negative (Neg) RSV (RT-PCR) Negative (Neg) 10/06/21 Range/Units 20:00 WBC 14.72 H (4.8-10.8) K/uL RBC 4.74 (4.7-6.1) M/uL Hgb 14.2 (14.0-18.0) g/dL Hct 39.9 L (42-52) % MCV 84.2 (80-100) fL MCH 30.0 (25-34) pg MCHC 35.6 (32-36) g/dL RDW Std Deviation 37.0 (36.4-46.3) fL RDW Coeff of Aviva 12.1 (11.5-14.5) % Plt Count 333 (130-400) K/uL MPV 9.9 (7.4-10.4) fL Immature Gran % (Auto) 0.2 % Neut % (Auto) 79.0 % Lymph % (Auto) 9.1 % [place] % (Auto) 10.4 % Eos % (Auto) 1.2 % Baso % (Auto) 0.1 % Neut # (Auto) 11.63 H (1.4-6.5) K/uL Lymph # (Auto) 1.34 (1.2-3.4) K/uL [place] # (Auto) 1.53 H (0.11-0.59) K/uL Eos # (Auto) 0.17 (0-0.5) K/uL Baso # (Auto) 0.02 (0-0.2) K/uL Immature Gran # (Auto) 0.03 H (0.00-0.02) K/uL Sodium (136-145) mmol/L Potassium (3.5-5.1) mmol/L Chloride (98-107) mmol/L Carbon Dioxide (21-32) mmol/L Anion Gap (3-11) BUN (6-23) mg/dl Creatinine (0.6-1.4) mg/dl Est Cr Clr Drug Dosing ml/min Est GFR ( Amer) ml/min Est GFR (Non-Af Amer) ml/min BUN/Creatinine Ratio (10-20) Glucose (70-99(Fasting)) mg/dl Lactate (0.4-2.0) mmol/L Calcium (8.5-10.1) mg/dl Total Bilirubin (0.2-1.0) mg/dl AST (13-39) U/L ALT (7-52) U/L Alkaline Phosphatase (34-104) U/L Total Protein (6.0-8.3) gm/dl Albumin (3.4-5.0) gm/dl Globulin (2.5-4.0) gm/dl Albumin/Globulin Ratio (0.9-2) Urine Color Urine Appearance (Clear) Urine pH (4.5-7.5) Ur Specific [place] (1.000-1.030) Urine Protein (Negative) Urine Glucose (UA) (Negative) Urine Ketones (Negative) Urine Blood (Negative) Urine Nitrite (Negative) Urine Bilirubin (Negative) Urine Urobilinogen (Negative) Ur Leukocyte Esterase (Negative) SARS-CoV-2 (PCR) (Negative) Influenza Type A (PCR) (Neg) Influenza Type B (PCR) (Neg) RSV (RT-PCR) (Neg)
[2021-10-08] MEDS: LACTATED RINGER'S 1,000 ML IV SCH ×3 (00:05→14:58)
[2021-10-08] MEDS: AZTREONAM 2,000 MG in DEXTROSE 5% 100 ML IV SCH ×3 (00:05→16:48)
[2021-10-08] MEDS: metroNIDAZOLE 500 MG/100 ML BAG IV SCH ×3 (03:07→17:59)
[2021-10-08 07:20] LABS: Basophils # (auto) 0.02 K/uL (0-0.2); Basophils % (auto) 0.3 %; Eosinophils % (auto) 5.1 %; Hematocrit (blood only) 38.8 % (42-52); Hemoglobin 12.9 g/dL (14.0-18.0); Immature Granulocytes # (auto) 0.03 K/uL (0.00-0.02); Immature Granulocytes % (auto) 0.5 %; Lymphocytes # (auto) 1.53 K/uL (1.2-3.4); Lymphocytes % (auto) 26.1 %; Mean Corpuscular Hemoglobin 29.3 pg (25-34); Mean Corpuscular Hgb Conc 33.2 g/dL (32-36); Mean Platelet Volume 10.1 fL (7.4-10.4); Monocytes # (auto) 0.65 K/uL (0.11-0.59); Monocytes % (auto) 11.1 %; Neutrophils # (auto) 3.33 K/uL (1.4-6.5); Neutrophils % (auto) 56.9 %; Platelet Count 302 K/uL (130-400); RDW Coefficient of Variation 12.4 % (11.5-14.5); RDW Standard Deviation 39.5 fL (36.4-46.3); Red Blood Count 4.41 M/uL (4.7-6.1); White Blood Count 5.86 K/uL (4.8-10.8)
[2021-10-08 08:36] LABS: Anion Gap 9 (3-11); BUN Creatinine Ratio 9.5 (10-20); Blood Urea Nitrogen 7 mg/dl (6-23); Calcium 9.1 mg/dl (8.5-10.1); Carbon Dioxide 29 mmol/L (21-32); Chloride 101 mmol/L (98-107); Creatinine Clr Calc Pharmacy 143.7 ml/min; Est GFR (African American) > 150.0 ml/min; Est GFR (Non-African American) 132.8 ml/min; Glucose 72 mg/dl (70-99(Fasting)); Sodium 139 mmol/L (136-145)
--- NOTE | 2021-10-08 12:13 | Surgery Progress Note ---
Date of Service October 08, 2021 Assessment & Plan (1) Acute appendicitis with appendiceal abscess: Plan: 21 year-old male who was recently admitted for perforated appendicitis treated conservatively with IV Cipro and Flagyl who was discharged on 10/02/2021 who presented to ED last evening with complaint of fever. Repeat CT scan showed perforated appendicitis with abscess slightly larger than previously measuring 5 cm. This is not amenable to percutaneous drainage per radiology given location even with increased size. IV antibiotics changed to Aztreonam and Flagyl. Leukocytosis resolved. No abdominal pain. Plan: Will continue IV antibiotics and monitor closely. Dr. Desir discussed the possibility of injury to bowel if we were to go in surgically at this time. Will repeat am labs including cbc and bmp and keep npo for now. Will re-evaluate tomorrow and determine if needs surgical intervention or just prolonged IV antibiotics. Encouraged ambulating hallway. Dr. Desir has seen and examined pt, agrees with above. 10/08/2021 12:11PM. Dr. Desir F/U appendicitis with abscess, pt is doing better, no fever, no abdominal pain, normal WBC continue IV antibiotic, soft diet, OOB, will F/U Admission and Anticipated Discharge Date Admission Date: October 06, 2021 Supervising Physician Co-Signing Physician Notes I personally saw and evaluated the patient with Italia Bustos PA-C and agree with the assessment and plan. 21-year-old male with recent admission for perforated appendicitis treated with IV antibiotics, now here with fever and slightly larger abscess Keep n.p.o. with IV antibiotics and IV fluids Will discuss the CT results with radiology to see if percutaneous drainage of the possibility Also will discuss the patient with the [facility] surgical service as they have been following him with his admission last week and he was set to follow-up with Dr. Santos later this week Subjective feeling better fever has resolved not having any abdominal pain, less pain then when he left the hospital on Thursday no n,v 10/08/2021 12:09PM, Dr. Desir, pt feels better, no abdominal pain, no fever, no diarrhea, Physical Exam Constitutional: WD/WN, vitals as above Eyes: PERRL, conjunctivae normal, anicteric sclerae Neck: trachea midline, no thyromegaly Respiratory: normal respiratory effort, lungs clear to auscultation Cardiovascular: RRR, no murmur, no edema Gastrointestinal (Abdomen): soft, NT, ND, BS + Musculoskeletal: no cyanosis or clubbing, extremities motor strength 5/5 Neurologic: patellar DTR's 2+ bilat, sensation intact Psychiatric: A+Ox3, euthymic affect Results & Data ([facility]) Vital Signs (Past 12 Hours) Vital Signs Temp Pulse Resp BP Pulse Ox 10/08/21 07:18 36.3 C L 70 16 100/60 98 Laboratory Results Abnormal lab results 10/08/21 10/08/21 Range/Units 06:42 06:42 RBC 4.41 L (4.7-6.1) M/uL Hgb 12.9 L (14.0-18.0) g/dL Hct 38.8 L (42-52) % [place] # (Auto) 0.65 H (0.11-0.59) K/uL Immature Gran # (Auto) 0.03 H (0.00-0.02) K/uL BUN/Creatinine Ratio 9.5 L (10-20)
--- NOTE | 2021-10-08 17:40 | Allergy & Immunology Consult ---
Date of Consultation October 08, 2021 Assessment & Plan (1) Drug allergy, antibiotic: Based on the patient's history, he has no history of clinical reaction to penicillin. There is no genetic basis the penicillin allergy, he has no contraindications to receiving an oral antibiotic. My sense talking him today is that he is more anxious about getting this rather than having a true risk of reacting. If either an oral or IV penicillin was needed this admission, he has no contraindication to getting this. Because he does not have a history of clinical reaction to penicillin, penicillin skin testing would not be indicated. Unfortunately, the positive predictive value of penicillin skin testing is as low as 50% and so this should not be used as a screening test in someone without any history of a strong clinical reaction. If we want to be completely cautious, we could give him an oral test dose of penicillin followed by observation 60 minutes. I do not believe that this is essential, but might help to reassure him that it is safe to use this medication. 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 This typically does not present as a hive-like rash, and azithromycin is typically very low risk for these types of reactions. I will see whether we can get the details of his hospital admission sent to us. If he had fever or any kind of organ dysfunction with this reaction, it would make me more concerned about Shaver-Ramu's. For now, I would recommend he avoid all macrolides. History of Present Illness Reason for Consultation: Antibiotic allergy Attending Physician: Duane Garcia, DO History of Present Illness This is a 21-year-old male who presented with history of appendicitis with abscess. It was determined that he would have interval appendectomy and was discharged on oral Cipro and Flagyl. He was doing well, but then presented to emergency room on 10/06/2021 with fever. He had a CT scan which showed an increased size of the abscess and an increased white count. Given the history of penicillin allergy, he was being treated with aztreonam and Flagyl. He believes that the plan will be to treat him with antibiotics, hopefully with oral medication, and to schedule appendectomy once he is stable. We reviewed his drug allergy history. Regarding his penicillin allergy, he does not believe that he ever got penicillin. He believes that multiple family members have a history of penicillin allergy, and as result this was listed on the allergy list. He does not recall ever getting or reacting to this. Regarding the reaction azithromycin, he says that he has been getting treated with this as the drug of choice anytime he has a respiratory infection given his history of allergy. He had strep throat and got azithromycin. He thinks that he was on this for a few days when he started to get a hive-like rash. He was seen in clinic and was told to go to emergency room because of the rash. He says that he also had hives in the mouth and this was the main reason for the Shaver-Ramu's diagnosis. He does not recall any specific details and thinks that this was about 4 years ago. Allergies Allergy/AdvReac Type Severity Reaction Status Date / Time azithromycin [From Zithromax] Allergy Intermediate Shaver- Unverified 10/08/21 12:33 Ramu Syndrome amoxicillin Allergy Unknown Unknown Unverified 10/08/21 12:33 Penicillins Allergy Unknown Unknown Unverified 10/06/21 21:22 Home Medications Medication Instructions Recorded Confirmed Type acetaminophen 325 mg tablet 325 mg PO QID PRN 09/29/21 10/06/21 History (Tylenol) ciprofloxacin HCl 500 mg tablet 500 mg PO BID #20 tab 10/02/21 10/06/21 Rx metronidazole 500 mg tablet 500 mg PO TID #30 tab 10/02/21 10/06/21 Rx oxycodone-acetaminophen 5 mg-325 1 tab PO Q4H PRN #10 tab 10/02/21 10/06/21 Rx mg tablet (Percocet) Patient History Medical History (Updated 10/08/21 @ 17:33 by Marlon Calle MD) Drug allergy, antibiotic IBS (irritable bowel syndrome) Panic attack Surgical History H/O wisdom tooth extraction Social History Smoking Status: Never smoker Tobacco Type: E-cigarettes / Vaping Hx Alcohol Use: No Hx Substance Use: No Preferred Language: Kiswahili Communication Ability: Effective Ice Skater Required: No Beliefs That Will Affect Care: None Current Living Situation: Significant Other Current Living Situation Comment: lives locally with girlfriend current occupation: [employer] student, taking virtual classes Other Information That Helps Us Care for You: No Feels Safe at Home: Yes Safety Concerns: Feels Safe At This Time Assistive Devices: None Review of Systems Constitutional: no fever and no chills Eyes: as per Subjective / HPI; no eye pain Ear, Nose, Mouth, Throat: as per Subjective / HPI Respiratory: as per Subjective / HPI Cardiovascular: as per Subjective / HPI Gastrointestinal: as per Subjective / HPI Genitourinary: + as per Subjective / HPI; no dysuria or no difficulty urinating Musculoskeletal: as per Subjective / HPI; no joint pain, no myalgia and no muscle weakness Integumentary: as per Subjective / HPI Neurologic: as per Subjective / HPI; no generalized weakness and no loss of sensation Endocrine: as per Subjective / HPI; no fatigue Hematologic / Lymphatic: as per Subjective / HPI; no lymphadenopathy Allergy / Immunological: as per Subjective / HPI Physical Exam Constitutional: WD/WN, vitals as above no altered mental status and not in distress Eyes: no eyelid abnormality, no conjunctival abnormality and sclerae not anicteric ENMT: Ears: no TM abnormality and able to visualize TM Nose: no turbinate abnormality, no nasal mucous membrane abnormality, no nasal discharge, nasal mucous membranes not dry and no nasal polyps Mouth: no lip abnormality Throat: uvula midline; no tonsil abnormality Neck: trachea midline Thyroid: normal thyroid Respiratory: no retractions, does not use accessory muscles, no cough, normal respiratory pattern, expiratory phase not prolonged and no audible wheezes Auscultation: lungs clear to auscultation bilaterally; no crackles, no rhonchi and no wheezes Cardiovascular: Rate/Rhythm: regular rate and regular rhythm Heart Sounds: normal S1 and normal S2; no murmur and no cardiac rub Extremities: no edema Gastrointestinal (Abdomen): Inspection/Auscultation: abdomen normal to inspection and normal bowel sounds Percussion/Palpation: abdomen nontender Musculoskeletal: Head/Neck/Chest: + head abnormal to inspection Skin: no rashes, no dry skin and no erythema Neurologic: awake; not confused Psychiatric: A+Ox3, euthymic affect Lymphatic: no lymphadenopathy Results & Data ([facility]) Vital Signs (Past 12 Hours) Vital Signs Temp Pulse Resp BP Pulse Ox 10/08/21 15:52 36.5 C 80 16 124/67 99 10/08/21 07:18 36.3 C L 70 16 100/60 98 Coding Level of Care Code 72491 Inpt Consult Level 3 Diagnoses Drug allergy, antibiotic Z88.1
[2021-10-08] MEDS: MoRPHine SULFATE 2 MG/ML CARP IV PRN (22:09)
[2021-10-09] MEDS: AZTREONAM 2,000 MG in DEXTROSE 5% 100 ML IV SCH ×4 (00:30→23:09)
[2021-10-09] MEDS: metroNIDAZOLE 500 MG/100 ML BAG IV SCH ×3 (02:55→18:08)
[2021-10-09] MEDS: LACTATED RINGER'S 1,000 ML IV SCH ×2 (02:56→15:50)
--- NOTE | 2021-10-09 08:44 | Surgery Progress Note ---
Date of Service October 09, 2021 Assessment & Plan (1) Acute appendicitis with appendiceal abscess: Plan: 21 year-old male who was recently admitted for perforated appendicitis treated conservatively with IV Cipro and Flagyl who was discharged on 10/02/2021 who presented to ED last evening with complaint of fever. Repeat CT scan showed perforated appendicitis with abscess slightly larger than previously measuring 5 cm. This is not amenable to percutaneous drainage per radiology given location even with increased size. IV antibiotics changed to Aztreonam and Flagyl. Leukocytosis resolved. No abdominal pain. Plan: Will continue IV antibiotics and monitor closely. Dr. Desir discussed the possibility of injury to bowel if we were to go in surgically at this time. Will repeat am labs including cbc and bmp and keep npo for now. Will re-evaluate tomorrow and determine if needs surgical intervention or just prolonged IV antibiotics. Encouraged ambulating hallway. Dr. Desir has seen and examined pt, agrees with above. 10/08/2021 12:11PM. Dr. Desir F/U appendicitis with abscess, pt is doing better, no fever, no abdominal pain, normal WBC continue IV antibiotic, soft diet, OOB, will F/U 10/09/2021 8:43AM. Dr. Desir F/U appendicitis with abscess, pt is doing better, no fever, no abdominal pain, normal WBC continue IV antibiotic, soft diet, OOB, possible D/C home tomorrow, Admission and Anticipated Discharge Date Admission Date: October 06, 2021 Supervising Physician Co-Signing Physician Notes I personally saw and evaluated the patient with Italia Bustos PA-C and agree with the assessment and plan. 21-year-old male with recent admission for perforated appendicitis treated with IV antibiotics, now here with fever and slightly larger abscess Keep n.p.o. with IV antibiotics and IV fluids Will discuss the CT results with radiology to see if percutaneous drainage of the possibility Also will discuss the patient with the [facility] surgical service as they have been following him with his admission last week and he was set to follow-up with Dr. Santos later this week Subjective feeling better fever has resolved not having any abdominal pain, less pain then when he left the hospital on Thursday no n,v 10/08/2021 12:09PM, Dr. Desir, pt feels better, no abdominal pain, no fever, no diarrhea, 10/09/2021 8:41AM, Dr. Desir, pt feels better, no abdominal pain, no fever, no diarrhea, Physical Exam Constitutional: WD/WN, vitals as above Eyes: PERRL, conjunctivae normal, anicteric sclerae Neck: trachea midline, no thyromegaly Respiratory: normal respiratory effort, lungs clear to auscultation Cardiovascular: RRR, no murmur, no edema Gastrointestinal (Abdomen): soft, NT, ND, BS + Musculoskeletal: no cyanosis or clubbing, extremities motor strength 5/5 Neurologic: patellar DTR's 2+ bilat, sensation intact Psychiatric: A+Ox3, euthymic affect Results & Data ([facility]) Vital Signs (Past 12 Hours) Vital Signs Temp Pulse Resp BP Pulse Ox 10/09/21 07:54 36.4 C L 60 16 106/61 99 10/08/21 23:04 36.5 C 74 16 120/67 98
[2021-10-09] MEDS: MoRPHine SULFATE 2 MG/ML CARP IV PRN (23:09)
[2021-10-10] MEDS: metroNIDAZOLE 500 MG/100 ML BAG IV SCH ×2 (02:34→11:43)
[2021-10-10] MEDS: LACTATED RINGER'S 1,000 ML IV SCH (02:34)
[2021-10-10] MEDS: AZTREONAM 2,000 MG in DEXTROSE 5% 100 ML IV SCH (07:48)
== END 2021-10-10 16:13 | disposition home or self-care (01) | DRG 871 ==
LOC: ED 19:34 → 3N 23:53
DX: K35.33 Acute appendicitis with perforation, localized peritonitis, and gangrene, with abscess; Z88.1 Allergy status to other antibiotic agents; Z88.0 Allergy status to penicillin; A41.9 Sepsis, unspecified organism